=== PATIENT | male | born 1960 | race Two or more races ===

== ENCOUNTER 2020-03-08 12:13 | Emergency (ER) | payer OTHER, SELFPAY ==
--- NOTE | 2020-03-08 | XR_ITS ---
EXAMINATION: XR CHEST CLINICAL INFORMATION: Right rib pain. COMPARISON: 09/02/2015 TECHNIQUE: 2 views of the chest were obtained. FINDINGS: Slightly rotated positioning. Prominence of the cardiac and mediastinal silhouette. Linear opacity right lung base, probably reflecting atelectasis. No dense consolidation. No pleural effusion, pulmonary edema or pneumothorax. No acute rib fracture is seen. Thoracic spine degeneration. There is mild anterior vertebral body height loss of T11, T12, L1 vertebral bodies, of indeterminate age. IMPRESSION: 1. Linear atelectasis in the right lung base. No evidence of acute pulmonary process otherwise. 2. No acute rib fracture is seen. 3. Mild vertebral body height loss of T11, T12, L1, of indeterminate age.
[2020-03-08 12:24] VITALS: BP 153/73; PULSE 57; RESP 18; TEMP 37; O2SAT 99; BMI 29.9
--- NOTE | 2020-03-08 13:01 | ED_ITS ---
HPI - General Adult General Chief complaint: General Medical Stated complaint: RIB PAIN Time Seen by Provider: 03/08/20 12:56 Source: patient Mode of arrival: ambulatory Limitations: no limitations History of Present Illness HPI narrative: Right-sided rib pain X1 week. The patient tells me he was bending down to lift something up and felt a pop in his right ribs. He now has had continued pain since then. No shortness of breath, cough. Onset (ago): week(s) Location: chest Radiation: non-radiation Severity: mild Quality: sharp Pain Consistency: constant Relieving factors: immobilization Exacerbating factors: movement Associated symptoms: denies other symptoms Related Data Home Medications Medication Instructions Recorded Confirmed atorvastatin 40 mg PO DAILY 03/07/20 03/07/20 ibuprofen [Motrin] 600 mg PO TID PRN 03/07/20 03/07/20 lisinopril 20 mg PO DAILY 03/07/20 03/07/20 methadone 30 mg PO DAILY 03/07/20 03/07/20 multivitamin 1 cap PO DAILY 03/07/20 03/07/20 Previous Rx's Medication Instructions Recorded cyclobenzaprine 10 mg PO Q8H PRN #10 tab 03/08/20 lidocaine [Lidoderm] 1 patch TOPICAL DAILY #15 ea 03/08/20 naproxen 500 mg PO BID #20 tab 03/08/20 Allergies Allergy/AdvReac Type Severity Reaction Status Date / Time SEAFOOD Allergy Mild ANAPHYLAXIS Uncoded 03/08/20 12:23 Review of Systems Review of Systems: Yes all other systems are reviewed and are negative Constitutional: Constitutional: Reports no additional constitutional complaints, Denies body ache(s), Denies chills, Denies fever(s), Denies headache(s) and Denies weakness Eyes: Eyes: Reports no additional eye complaints and Denies change in vision ENT: Reports system reviewed and no additional complaints, except as documented, Denies dizziness, Denies headache(s), Denies nasal congestion, Denies nasal discharge and Denies neck pain Cardiovascular: Cardiovascular: Reports no additional cardiovascular complaints, Reports chest pain, Denies leg edema and Denies dyspnea Respiratory: Respiratory: Reports no additional respiratory complaints, Denies cough and Denies dyspnea Gastrointestinal: Gastrointestinal: Reports no additional gastrointestinal complaints, Denies abdominal pain, Denies diarrhea, Denies nausea and Denies vomiting Musculoskeletal: Musculoskeletal: Reports no additional musculoskeletal complaints, Denies abnormal gait, Denies back pain, Denies arthralgias, Denies joint swelling, Denies neck pain, Denies numbness and Denies tingling Integumentary/Breasts: Skin/Breast: Reports system reviewed and no additional complaints, except as docu and Denies rash Neurologic: Reports system reviewed and no additional complaints, except as documented, Denies Abnormal speech present, Denies abnormal gait, Denies dizziness, Denies headache(s), Denies focal weakness, Denies numbness, Denies tingling and Denies weakness [facility] Past Medical History Attestation statement: The following information was validated with the patient. Source: obtained from family and nursing notes reviewed Medical History Elevated cholesterol Hepatitis C HTN (hypertension) Hx of intravenous drug use in remission Social History Social History Advance Directives: No Advance Directives Information Provided: Yes Physical Exam Vital Signs and I&O and Narrative: Vital Signs and I&O: Vital Signs Temp 98.6 F 03/08/20 12:24 Pulse 57 03/08/20 12:24 Resp 18 03/08/20 12:24 BP 153/73 H 03/08/20 12:24 Pulse Ox 99 03/08/20 12:24 Intake & Output 03/07/20 03/08/20 03/08/20 18:59 06:59 18:59 Weight 89.358 kg Body Mass Index 29.9 Const: General: cooperative, healthy appearing, comfortable and no acute distress Orientation/consciousness: patient oriented x3 Limitations: no limitations HENMT: Head: Yes normal to inspection Ears: hearing grossly normal bilaterally General nose exam: Normal external nose present Face and sinus: Yes normal facial exam Mouth: Normal oral and palatal mucosa present Throat: Yes posterior oropharynx normal Eyes: General: appearance normal, both eyes and all related structures Pupils: Equal, round and reactive pupils present Neck: Neck: Yes normal visual inspection Chest: Chest palpation & inspection: normal inspection of the chest and localized rib tenderness with anteroposterior compression (Right lateral chest. No ecchymosis, crepitus) Resp: Effort & Inspection: normal respiratory effort Auscultation: clear to auscultation bilaterally Cardio: Rate: regular rate Rhythm: regular rhythm Peripheral pulses: Peripheral pulses 2+ throughout GI: Inspection: Yes normal to inspection Palpation (GI): Soft to palpation and nontender Auscultation: normal bowel sounds Back/Spine/Pelvis: Thoracic/Lumbar Spine: thoracic and lumbar spine normal to inspection Skin: General skin exam: no rashes or lesions noted Neuro: General: patient oriented x3, no focal motor deficits and normal sensation to monofilament Cranial nerves: Yes Equal, round and reactive pupils present Cognition (Neuro): normal cognition Speech: No Abnormal speech present Gait exam (Neuro): Normal gait present Motor exam (neuro): 5/5 motor strength present throughout Extrem: General: Yes normal to inspection Medical Decision Making MDM Narrative Medical decision making narrative: imaging negative. Likely contusion versus strain. Reviewed worrisome signs and symptoms and when to return to the emergency department. Comfortable discharge home. Imaging Data rib x-ray: Attestation: I personally reviewed and interpreted this imaging study as follows: My impression: Unremarkable Radiologist's impression: FINDINGS: Slightly rotated positioning. Prominence of the cardiac and mediastinal silhouette. Linear opacity right lung base, probably reflecting atelectasis. No dense consolidation. No pleural effusion, pulmonary edema or pneumothorax. No acute rib fracture is seen. Thoracic spine degeneration. There is mild anterior vertebral body height loss of T11, T12, L1 vertebral bodies, of indeterminate age. IMPRESSION: 1. Linear atelectasis in the right lung base. No evidence of acute pulmonary process otherwise. 2. No acute rib fracture is seen. 3. Mild vertebral body height loss of T11, T12, L1, of indeterminate age. Discharge Plan Discharge Clinical Impression: Chest wall muscle strain Qualifiers: Encounter type: initial encounter Qualified Code(s): S29.011A - Strain of muscle and tendon of front wall of thorax, initial encounter Patient Disposition: Home, Self-Care Instructions: Chest Wall Pain (ED) Additional Instructions: Heat or ice gentle stretching Prescriptions: New lidocaine [Lidoderm] 5 % adhesive patch,medicated 1 patch topical DAILY Qty: 15 RF: 0 cyclobenzaprine 10 mg tablet 10 mg PO Q8H PRN (Reason: muscle spasm) Qty: 10 RF: 0 naproxen 500 mg tablet 500 mg PO BID Qty: 20 RF: 0 No Action atorvastatin 40 mg Tablet 40 mg PO DAILY RF: 0 methadone 10 mg/5 mL Solution 30 mg PO DAILY RF: 0 lisinopril 20 mg Tablet 20 mg PO DAILY RF: 0 ibuprofen [Motrin] 600 mg Tablet 600 mg PO TID PRN (Reason: Pain) RF: 0 multivitamin Capsule 1 cap PO DAILY RF: 0 Referrals: Physician,Unknown [Primary Care Provider] - 2 days Stand Alone Forms: Work/School Release
== END 2020-03-08 13:45 | disposition home or self-care (01) ==
PROVIDERS: Emergency Provider Emergency Medicine
DX: S29.011A Strain of muscle and tendon of front wall of thorax, initial encounter (principal); R07.81 Pleurodynia; M54.6 Pain in thoracic spine; X58.XXXA Exposure to other specified factors, initial encounter; Y93.9 Activity, unspecified; Y92.9 Unspecified place or not applicable
CPT/HCPCS: 71046; 99283

== ENCOUNTER 2020-03-15 08:16 | Day surgery (SDC) | payer OTHER, SELFPAY ==
[2020-03-07 13:33] VITALS: BMI 28.7
--- NOTE | 2020-03-08 15:10 | HO.ANESPROP2 ---
Documented by User: Pamela Aly 03/08/20 15:14 HPI - Anesthesia Eval Consult details Narrative: 60yo M for colonoscopy [facility] Past Medical History Medical History Elevated cholesterol Hepatitis C HTN (hypertension) Hx of intravenous drug use in remission Social History Social History Smoking Status: Never smoker Packs Per Day: 0.5 Cigarettes Per Day: 10.0 Second Hand Smoke Exposure: No Use of substances other than those prescribed or required for medical reasons: No Substance Use Type: IV Drugs and Methamphetamine Have you been hit, kicked, punched, or otherwise hurt by someone within the past year? If so, by whom?: No Advance Directives: No Advance Directives Information Provided: No (unk) Recently lost weight without trying: No Meds Allergies Allergy/AdvReac Type Severity Reaction Status Date / Time SEAFOOD Allergy Mild ANAPHYLAXIS Uncoded 03/08/20 12:23 Home Medications Medication Instructions Recorded Confirmed Type atorvastatin 40 mg PO DAILY 03/07/20 03/07/20 History ibuprofen [Motrin] 600 mg PO TID PRN 03/07/20 03/07/20 History lisinopril 20 mg PO DAILY 03/07/20 03/07/20 History methadone 30 mg PO DAILY 03/07/20 03/07/20 History multivitamin 1 cap PO DAILY 03/07/20 03/07/20 History Exam Exam Date and Time: March 08, 2020 1510 Height,Weight and Vital Signs: Height 5 ft 8 in Weight 85.729 kg Pertinent Lab Results Pertinent Lab Results: Laboratory Tests 10/09/19 10/09/19 10/09/19 13:34 13:34 13:34 WBC 5.6 Hgb 12.7 L Hct 38.7 L Plt Count 203 Sodium 138 Potassium 4.3 Chloride 103 Bicarbonate 26 BUN 17 H Creatinine 1.18 Calcium 9.3 D Total Bilirubin 0.2 AST 36 ALT 46 H Alkaline Phosphatase 54 Total Protein 8.1 H Albumin 4.0 Hep C Viral Load 5502200, 6.86 H Assessment and Plan Assessment Anesthesia Assessment: Chart Reviewed Documented by User: Denise Pitt 03/15/20 08:41 PMFSH Past Medical History Medical History Elevated cholesterol Hepatitis C HTN (hypertension) Hx of intravenous drug use in remission Social History Social History Smoking Status: Never smoker Packs Per Day: 0.5 Cigarettes Per Day: 10.0 Second Hand Smoke Exposure: No Use of substances other than those prescribed or required for medical reasons: No Substance Use Type: IV Drugs and Methamphetamine Have you been hit, kicked, punched, or otherwise hurt by someone within the past year? If so, by whom?: No Advance Directives: No Advance Directives Information Provided: No (unk) Recently lost weight without trying: No Meds Allergies Allergy/AdvReac Type Severity Reaction Status Date / Time SEAFOOD Allergy Mild ANAPHYLAXIS Uncoded 03/08/20 12:23 Home Medications Medication Instructions Recorded Confirmed Type atorvastatin 40 mg PO DAILY 03/07/20 03/07/20 History ibuprofen [Motrin] 600 mg PO TID PRN 03/07/20 03/07/20 History lisinopril 20 mg PO DAILY 03/07/20 03/07/20 History methadone 30 mg PO DAILY 03/07/20 03/07/20 History multivitamin 1 cap PO DAILY 03/07/20 03/07/20 History Exam Airway Mallampati Class: III TM Dist: >3cm Neck ROM: Full Loose/Missing/Broken Teeth: Yes, Upper and Lower Heart: RRR Lungs: CTA Assessment and Plan Assessment Anesthesia Assessment: Anesthesia Plan Discussed Final Anesthetic Review NPO: Yes ASA Class: II Final Preanesthetic Review: Meds/Allgs Chart Reviewed, Consent Obtained/Reviewed and Anes Risks/Benef Reviewed Patient Risk: Low Procedure Risk: Low Anesthetic Plan Anesthetic Plan: MAC: Disposition: Standard PACU
[2020-03-15 08:19] VITALS: BP 179/87; PULSE 62; RESP 16; TEMP 36.4; O2SAT 97
[2020-03-15] MEDS: Lactated Ringers 1,000 ML 100 ML IVCONT (08:53)
--- NOTE | 2020-03-15 08:56 | MHC.SHP ---
Pre-Procedural Eval Section A The History & Physical has been completed within 30 days and I have reviewed it.: No Section B Chief Complaint: Screening Details of Present Illness: Colon cancer screening Relevant Family History (Specify if Yes): No Relevant Social History: Tobacco Use Present Medications: see Short Stay Collaborative assessment Medical History: Significant History (Chronc Hepatitis C, Hypertension) History of Previous Operations: No relevant previous surgery Allergies: Allergies Allergy/AdvReac Type Severity Reaction Status Date / Time SEAFOOD Allergy Mild ANAPHYLAXIS Uncoded 03/08/20 12:23 Review of Systems Sugical H&P ROS: Negative: Constitution, Cardiovascular, Respiratory and Gastrointestinal Exam Surgical H&P Exam: Normal: HEENT, Normal: Heart, Normal: Lungs, Normal: Extremities and Normal: Abdomen Plan Diagnosis/Plan: Unchanged Patient has been examined and remains a candidate for the planned procedure
--- NOTE | 2020-03-15 09:03 | PM.OP ---
Brief Operative Note Date of procedure: 03/15/20 Pre-op diagnosis: Colon cancer screening Post-op diagnosis: other (Colon polyp, diverticulosis and hemorrhoids) Procedure: COLONOSCOPY PROCEDURE NOTE Consent: Indications for the procedure and potential complications of bleeding, perforation, reaction to medications and missed diagnosis were discussed with the patient and informed consent was obtained. Instrument: Olympus PCF H 190 L variable stiffness pediatric colonoscope Monitoring: Vital signs and clinical assessment, intermittent blood pressure monitoring, continuous EKG monitoring, Pulse oximetry and Carbon Dioxide monitoring were done throughout the procedure. Colon withdrawl time was 24 minutes. Procedure: The patient was placed in the left lateral decubitis position and pre-procedure medications were administered. After a digital rectal examination of the ano-rectum, the video colonoscope was inserted into the rectum and advanced through the colon to the cecum. The colonoscope was slowly withdrawn in a retrograde panoramic fashion and the colon mucosa was carefully examined including a retroflexed view of the rectum. Findings and interventions are described below. Procedure Difficulty: Without difficulty Findings: Terminal Ileum: Not evaluated Cecum: Partially evaluated due to fair prep Ascending Colon: Partially evaluated due to fair prep Transverse Colon: A 5-6 mm adenomatous appearing polyp removed with a cold snare and polyp was not retrieved and partially evaluated due to fair prep Descending Colon: Partially evaluated due to fair prep Sigmoid Colon: Mild diverticulosis and partially evaluated due to fair prep Rectum: Normal Ano-rectum: Moderate internal hemorrhoids Colon preparation:Fair despite copious irrigation and poor in some areas of the colon (pt admitted taking rice and beans at 5 pm yesterday). Impression and Post Procedure Diagnosis: Colonoscopy Findings: One polyp removed - polyp was not retrieved. Mild diverticulosis seen in the sigmoid colon Moderate hemorrhoids on retroflexed exam. Plan: Await pathology results Patient has an appointment on 03/31/20 in the GI Clinic with Jayme Ramachandran M.D.-. Repeat Colonoscopy in 1 year due to fair prep - poor in some areas. Above findings were reviewed with the patient and colon polyps and diverticulosis handouts were given in the discharge area Surgeon: Jayme Ramachandran MD Anesthesia: MAC (Dr Pitt & Yancy Posada, BRIGIDA) Slubber Operator: Dafne Walls Pathology: none sent Condition: stable Disposition: PACU
[2020-03-15 09:55] VITALS: BP 136/88; PULSE 65; RESP 12; TEMP 36.1; O2SAT 94
[2020-03-15 10:10] VITALS: BP 151/98; PULSE 55; RESP 18; TEMP 36.1; O2SAT 96
--- NOTE | 2020-03-15 10:29 | HO.POSTANES ---
Post Anesthesia Evaluation Post Anesthesia Evaluation Vital Signs: Vital Signs Temp Pulse Resp BP Pulse Ox 03/15/20 10:10 97 F 55 18 151/98 H 96 03/15/20 09:55 97 F 65 12 136/88 94 03/15/20 08:19 97.6 F 62 16 179/87 H 97 Anesthesia: Monitored Mental Status: Awake Pain Control: Satisfactory Nausea/Vomiting: None Hydration: Adequate Anesthesia-Related Issues: No Anes. Related Issues
--- NOTE | 2020-04-10 15:02 | P.OP_ITS ---
Operative Note Operative Note Narrative: Date of procedure: 03/15/20 Pre-op diagnosis: Colon cancer screening Post-op diagnosis: other (Colon polyp, diverticulosis and hemorrhoids) Procedure: COLONOSCOPY TILL CECUM WITH SNARE POLYPECTOMY Consent: Indications for the procedure and potential complications of bleeding, perforation, reaction to medications and missed diagnosis were discussed with the patient and informed consent was obtained. Instrument: Olympus PCF H 190 L variable stiffness pediatric colonoscope Monitoring: Vital signs and clinical assessment, intermittent blood pressure monitoring, continuous EKG monitoring, Pulse oximetry and Carbon Dioxide monitoring were done throughout the procedure. Colon withdrawl time was 24 minutes. Procedure: The patient was placed in the left lateral decubitis position and pre-procedure medications were administered. After a digital rectal examination of the ano-rectum, the video colonoscope was inserted into the rectum and advanced through the colon to the cecum. The colonoscope was slowly withdrawn in a retrograde panoramic fashion and the colon mucosa was carefully examined including a retroflexed view of the rectum. Findings and interventions are described below. Procedure Difficulty: Without difficulty Findings: Terminal Ileum: Not evaluated Cecum: Partially evaluated due to fair prep Ascending Colon: Partially evaluated due to fair prep Transverse Colon: A 5-6 mm adenomatous appearing polyp removed with a cold snare and polyp was not retrieved and partially evaluated due to fair prep Descending Colon: Partially evaluated due to fair prep Sigmoid Colon: Mild diverticulosis and partially evaluated due to fair prep Rectum: Normal Ano-rectum: Moderate internal hemorrhoids Colon preparation:Fair despite copious irrigation and poor in some areas of the colon (pt admitted taking rice and beans at 5 pm yesterday). Impression and Post Procedure Diagnosis: Colonoscopy Findings: One polyp removed - polyp was not retrieved. Mild diverticulosis seen in the sigmoid colon Moderate hemorrhoids on retroflexed exam. Plan: Await pathology results Patient has an appointment on 03/31/20 in the GI Clinic with Jayme Ramachandran M.D.-. Repeat Colonoscopy in 1 year due to fair prep - poor in some areas. Above findings were reviewed with the patient and colon polyps and diverticulosis handouts were given in the discharge area Surgeon: Jayme Ramachandran MD Anesthesia: MAC (Dr Pitt & Yancy Posada, BRIGIDA) Self Sealing Fuel Tank Repairer: Dafne Walls Pathology: none sent Condition: stable Disposition: PACU
== END 2020-03-15 10:36 | disposition home or self-care (01) ==
PROVIDERS: PCP Internal Medicine; Visit Provider Internal Medicine Gastroenterology
PROC: 0DJD8ZZ Inspection of Lower Intestinal Tract, Via Natural or Artificial Opening Endoscopic (ICD-10-PCS; CPT 45378; principal; 2020-03-15 09:40)
DX: Z12.11 Encounter for screening for malignant neoplasm of colon (principal); K63.5 Polyp of colon; K57.30 Diverticulosis of large intestine without perforation or abscess without bleeding; K64.8 Other hemorrhoids; I10 Essential (primary) hypertension; B18.2 Chronic viral hepatitis C; Z79.899 Other long term (current) drug therapy; F11.20 Opioid dependence, uncomplicated; F17.210 Nicotine dependence, cigarettes, uncomplicated; Z88.8 Allergy status to other drugs, medicaments and biological substances
CPT/HCPCS: 45385

== ENCOUNTER → 2020-03-31 10:26 | Outpatient (BNVA) | payer OTHER, SELFPAY | PROVIDERS: PCP Internal Medicine; Referring Provider Internal Medicine; Visit Provider Internal Medicine Gastroenterology | DX: K59.09 Other constipation (principal); K57.30 Diverticulosis of large intestine without perforation or abscess without bleeding; B18.2 Chronic viral hepatitis C; Z98.890 Other specified postprocedural states | CPT/HCPCS: 99212 ==

== ENCOUNTER 2020-04-01 08:47 | Outpatient (REF) | payer OTHER, SELFPAY ==
[2020-04-01 09:19] LABS: MANUAL DIFF FLAG NO
[2020-04-01 09:39] LABS: Prothrombin Time 11.8 SEC (10.8-13.0)
[2020-04-01 09:42] LABS: Partial Thromboplastin Time 35.3 SEC (24.1-38.0)
[2020-04-01 09:44] LABS: Basophils Percent Auto 0.4 % (0-2); Eosinophils Absolute Auto 0.3 X10*3/uL (0.0-0.4); Eosinophils Percent Auto 5.8 % (0-4); Imm Gran Abs Auto 0.02 X10*3/uL (0.00-0.03); Imm Gran Pct Auto 0.4 % (0.0-0.4); Lymphocytes Absolute Auto 2.2 X10*3/uL (1.2-4.9); Lymphocytes Percent Auto 43.2 % (20-40); Mean Corpuscular HGB Conc 31.7 g/dl (31.0-36.0); Mean Corpuscular Hemoglobin 28.7 pg (27.0-33.0); Mean Corpuscular Volume 90.5 fL (80-98); Mean Platelet Volume 10.6 fL (9.4-12.4); Monocytes Absolute Auto 0.5 X10*3/uL (0.1-1.2); Monocytes Percent Auto 9.1 % (2-11); Neutrophils Absolute Auto 2.1 X10*3/uL (2.0-8.3); Neutrophils Percent Auto 41.1 % (45-73); Platelet Count 236 X10*3/uL (160-400); Red Blood Count 4.53 X10*6/uL (4.60-5.80); Red Cell Distribution Width 13.6 % (11.0-16.0); White Blood Count 5.2 X10*3/uL (4.8-10.8)
[2020-04-01 10:26] LABS: C Reactive Protein 0.51 mg/dL (< or = 0.50); Iron 155 mcg/dL (45-160); Percent Iron Saturation 47 % (15-50); Total Iron Binding Capacity 330 mcg/dL (228-428); Unsaturated Iron Binding 175 ug/dL
[2020-04-01 10:39] LABS: Ferritin 337 ng/mL (20-250)
[2020-04-01 10:49] LABS: HBS Num1 4.59 mIU/mL (0-7.99); HIV AB/AG Nonreactive (Nonreactive); HIV Num 1 0.04 S/CO (0.00-0.99); ~Hepatitis B Surface Antibody NONREACTIVE (Nonreactive)
[2020-04-01 10:55] LABS: HBsAGNum1 0.17 S/CO (0.00-0.99); Hepatitis B Surface Antigen Negative (Negative)
[2020-04-01 11:55] LABS: HBc Num1 7.05 S/CO (0.00-0.79)
[2020-04-01 12:03] LABS: HBc Num2 6.79 S/CO; HBc Num3 7.05 S/CO; Hepatitis B Core Antibody Reactive (Nonreactive)
[2020-04-02 14:16] LABS: Hepatitis B Core Antibody IgM NON-REACTIVE (NON-REACTIVE)
[2020-04-04 10:56] LABS: Anti Nuclear Antibody Screen NEGATIVE (NEGATIVE)
[2020-04-04 12:31] LABS: Alpha Fetoprotein 2.9 ng/mL (<6.1)
[2020-04-07 00:51] LABS: HCV Genotype PCR 1a
[2020-04-07 16:41] LABS: FIB-ALT 62 U/L (9-46); FIB-Alpha-2-Macroglobulin 418 mg/dL (106-279); FIB-Apolipoprotein A1 114 mg/dL (94-176); FIB-GGT 83 U/L (3-70); FIB-Haptoglobin 132 mg/dL (43-212); FIB-Total Bilirubin 0.4 mg/dL (0.2-1.2); Liver Fibrosis Score 0.76; Liver Fibrosis Stage F4; Nec Inflam Act Grade A2; Nec Inflam Act Score 0.54
== END 2020-04-01 08:48 | disposition home or self-care (01) ==
LOC: HO.LAB 08:47
PROVIDERS: PCP Internal Medicine; Visit Provider Internal Medicine Gastroenterology
DX: B18.2 Chronic viral hepatitis C (principal)
CPT/HCPCS: 36415; 81596; 82105; 82728; 83540; 85025; 85610; 85730; 86038; 86039; 86140; 86704; 86705; 86706; 87340; 87389

== ENCOUNTER 2020-04-22 13:53 | Outpatient (REF) | payer OTHER, SELFPAY ==
[2020-04-28 21:36] LABS: HCV Genotype PCR 1a
== END 2020-04-22 13:54 | disposition home or self-care (01) ==
LOC: HO.LAB 13:53
PROVIDERS: PCP Internal Medicine; Visit Provider Internal Medicine Gastroenterology
DX: Z13.89 Encounter for screening for other disorder (principal)

== ENCOUNTER → 2020-06-02 15:24 | Outpatient (BNVA) | payer OTHER, SELFPAY | PROVIDERS: Visit Provider Internal Medicine Gastroenterology | DX: Z76.89 Persons encountering health services in other specified circumstances (principal) ==

== ENCOUNTER 2020-06-23 08:35 | Outpatient (REF) | payer OTHER, SELFPAY ==
--- NOTE | 2020-06-23 08:38 | US_ITS ---
EXAMINATION: US COMPLETE ABDOMEN WITH LIVER ELASTOGRAPHY CLINICAL INFORMATION: Chronic viral hepatitis C. COMPARISON: None. TECHNIQUE: Real-time imaging of the abdominal viscera. Noninvasive ultrasound liver fibrosis assessment is performed using Natanael ElastPQ point quantification shear wave elastography (pSWE) with a 5 MHz transducer. Multiple elastography samples are obtained. FINDINGS: PANCREAS: The body of the pancreas is homogeneous in echotexture. The rest of the pancreas is not seen. ABDOMINAL AORTA: The proximal, middle, and distal aortic segments are normal in caliber. INFERIOR VENA CAVA: Visualized portions are normal. LIVER: The liver demonstrates normal size, contour and increased echogenicity. No focal lesion or intrahepatic biliary duct dilatation. The right lobe measures 13.4 cm in length. The left lobe measures 9.1 cm in length. There is hepatopedal flow seen in the middle portal vein on Doppler exam. Shear wave elastography provides a median stiffness of 1.71 m/s (reference: normal median stiffness is 0.81 - 1.22 m/s). The IQR/median stiffness to assess sampling precision is 0.27 (reference: optimal IQR/median stiffness is under 0.3). GALLBLADDER: Normal. The gallbladder is physiologically distended without evidence of stones, sludge, polyps, wall thickening or pericholecystic fluid. COMMON BILE DUCT: Normal in caliber measuring 0.4 cm in diameter. RIGHT KIDNEY: Normal. No hydronephrosis. No renal calculi or focal parenchymal lesions. The kidney measures 9.6 cm in maximum dimension. LEFT KIDNEY: There is a parapelvic cyst seen in the lower pole. It measures 1.5 x 2.0 x 1.2 cm. No hydronephrosis. No renal calculi or focal parenchymal lesions. The kidney measures 11.3 cm in maximum dimension. SPLEEN: Normal. The spleen measures 9.1 cm in maximum dimension. FREE FLUID: None. US/US abdomen comp w elastography IMPRESSION: 1. Mildly echogenic liver without focal lesion. Parapelvic cyst lower pole left kidney. No echogenic stones seen in either kidney. 2. Elastography: [id number] fibrosis, stage F2-F3.
== END 2020-06-23 08:36 | disposition home or self-care (01) ==
LOC: HO.US 08:35
PROVIDERS: PCP Internal Medicine; Visit Provider Internal Medicine Gastroenterology
DX: B18.2 Chronic viral hepatitis C (principal)
CPT/HCPCS: 76705; 76981

== ENCOUNTER 2020-06-24 12:34 | Outpatient (REF) | payer OTHER, SELFPAY | END 2020-06-24 12:35 | disposition home or self-care (01) | LOC: HO.LAB 12:34 | PROVIDERS: PCP Internal Medicine; Visit Provider Internal Medicine Gastroenterology | DX: B18.2 Chronic viral hepatitis C (principal) | CPT/HCPCS: 36415; 87522 ==

== ENCOUNTER → 2020-08-26 15:29 | Outpatient (BNVA) | payer OTHER, SELFPAY | PROVIDERS: PCP Internal Medicine; Visit Provider Internal Medicine Gastroenterology ==

== ENCOUNTER 2020-09-09 10:06 | Outpatient (REF) | payer OTHER, SELFPAY ==
[2020-09-09 10:59] LABS: MANUAL DIFF FLAG NO
[2020-09-09 11:06] LABS: Basophils Percent Auto 0.4 % (0-2); Eosinophils Absolute Auto 0.2 X10*3/uL (0.0-0.4); Eosinophils Percent Auto 3.3 % (0-4); Hematocrit 37.2 % (42-52); Hemoglobin 11.8 g/dl (14.0-18.0); Imm Gran Abs Auto 0.02 X10*3/uL (0.00-0.03); Imm Gran Pct Auto 0.3 % (0.0-0.4); Lymphocytes Absolute Auto 2.9 X10*3/uL (1.2-4.9); Lymphocytes Percent Auto 43.1 % (20-40); Mean Corpuscular HGB Conc 31.7 g/dl (31.0-36.0); Mean Corpuscular Hemoglobin 28.9 pg (27.0-33.0); Mean Corpuscular Volume 91.2 fL (80-98); Mean Platelet Volume 10.6 fL (9.4-12.4); Monocytes Absolute Auto 0.5 X10*3/uL (0.1-1.2); Monocytes Percent Auto 7.8 % (2-11); Neutrophils Percent Auto 45.1 % (45-73); Platelet Count 200 X10*3/uL (160-400); Red Blood Count 4.08 X10*6/uL (4.60-5.80); Red Cell Distribution Width 14.3 % (11.0-16.0); White Blood Count 6.7 X10*3/uL (4.8-10.8)
[2020-09-09 11:57] LABS: Alanine Aminotransferase 14 U/L (0-40); Albumin Level 3.7 g/dL (3.5-5.0); Alkaline Phosphatase 46 U/L (39-117); Anion Gap 11 (12-20); Aspartate Amino Transferase 15 U/L (5-37); Bilirubin Total 0.2 mg/dL (0.0-1.0); Blood Urea Nitrogen 18 mg/dL (9-16); Calcium 8.9 mg/dL (8.4-10.2); Carbon Dioxide 28 mmol/L (22-29); Chloride 105 mmol/L (96-108); Estimated Glomerular Filt Rate > 60; Glucose Random 114 mg/dL (60-115); Potassium 4.4 mmol/L (3.3-5.1); Sodium 140 mmol/L (135-145); Total Protein 7.9 g/dL (6.5-8.0)
[2020-09-10 18:36] LABS: HCV Log PCR <1.18 NOT DETECTED Log IU/mL (NOT DETECTED); HepC Viral Load <15 NOT DETECTED IU/mL (NOT DETECTED)
== END 2020-09-09 10:07 | disposition home or self-care (01) ==
LOC: HO.LAB 10:06
PROVIDERS: PCP Internal Medicine; Visit Provider Internal Medicine Gastroenterology
DX: B18.2 Chronic viral hepatitis C (principal)
CPT/HCPCS: 36415; 80053; 85025; 87522

== ENCOUNTER 2020-09-22 09:51 | Emergency (ER) | payer OTHER, SELFPAY ==
--- NOTE | ~2020-09-22 | XR_ITS ---
EXAMINATION: XR TIBIA AND FIBULA, LEFT CLINICAL INFORMATION: Pain lower leg. No known trauma COMPARISON: Radiographs left knee 01/20/2019 TECHNIQUE: AP and lateral views of the left tibia and fibula were obtained. FINDINGS: There is no acute or healing fracture, dislocation, destructive process. Bony mineralization is normal. There is no periostitis. No visible suprapatellar effusion. Hoffa's fat pad appears normal. XR/XR tibia fibula LT 2V IMPRESSION: Normal left tibia and fibula.
[2020-09-22 10:17] VITALS: BP 143/87; PULSE 66; RESP 18; TEMP 36.3; O2SAT 97; BMI 30.1
--- NOTE | 2020-09-22 10:25 | ED_ITS ---
HPI - General Adult General Chief complaint: Extremity Injury, Lower Stated complaint: leg pain Time Seen by Provider: 09/22/20 10:15 Source: patient Mode of arrival: ambulatory Limitations: no limitations History of Present Illness HPI narrative: 60-year-old male with a past medical history of high cholesterol, hepatitis-C on harvoni, hypertension, IV drug abuse currently on methadone here with complaints of left lower extremity pain. Patient tells me that he started to notice pain about 1 week ago. There was no injury or trauma. He does work 8-9 hours a day on his feet. He was wearing some old sneakers so he bought a pair of sketchers is about 6 days ago. Continued pain. Pain is worsened with walking. No erythema. There is mild swelling to the site. No fevers or chills. No calf pain. Patient tells me he received the Moderna vaccine on September 15. Related Data Home Medications Medication Instructions Recorded Confirmed atorvastatin 40 mg PO DAILY 03/07/20 08/26/20 lisinopril 20 mg tablet 20 mg PO DAILY 06/02/20 08/26/20 methadone 10 mg/5 mL oral solution 50 mg PO DAILY ml 06/02/20 08/26/20 Previous Rx's Medication Instructions Recorded sofosbuvir 400 mg-velpatasvir 100 1 tab PO DAILY 84 Days #84 tab 07/29/20 mg tablet cyclobenzaprine 10 mg PO TID PRN #10 tab 09/22/20 naproxen 500 mg PO BID PRN #20 tab 09/22/20 Allergies Allergy/AdvReac Type Severity Reaction Status Date / Time SEAFOOD Allergy Mild ANAPHYLAXIS Uncoded 03/08/20 12:23 Review of Systems Review of Systems: Yes all other systems are reviewed and are negative Constitutional: Constitutional: Reports no additional constitutional complaints, Denies body ache(s), Denies chills, Denies fever(s), Denies headache(s) and Denies weakness Eyes: Eyes: Reports no additional eye complaints and Denies change in vision ENT: Reports system reviewed and no additional complaints, except as documented, Denies dizziness, Denies headache(s), Denies nasal congestion, Denies nasal discharge and Denies neck pain Cardiovascular: Cardiovascular: Reports no additional cardiovascular complaints, Denies chest pain, Denies leg edema and Denies dyspnea Respiratory: Respiratory: Reports no additional respiratory complaints, Denies cough and Denies dyspnea Gastrointestinal: Gastrointestinal: Reports no additional gastrointestinal complaints, Denies abdominal pain, Denies diarrhea, Denies nausea and Denies vomiting Genitourinary: Genitourinary: Denies urinary incontinence Musculoskeletal: Musculoskeletal: Reports no additional musculoskeletal complaints, Denies back pain, Reports arthralgias, Reports joint swelling, De nies limited range of motion, Denies neck pain, Denies numbness and Denies tingling Integumentary/Breasts: Skin/Breast: Reports system reviewed and no additional complaints, except as docu and Denies rash Neurologic: Reports system reviewed and no additional complaints, except as documented, Denies Abnormal speech present, Denies dizziness, Denies headache(s), Denies numbness, Denies tingling and Denies weakness PMFSH Past Medical History Attestation statement: The following information was validated with the patient. Source: old records reviewed and nursing notes reviewed Medical History Chronic constipation Elevated cholesterol Hepatitis C Hepatitis C, chronic HTN (hypertension) Hx of intravenous drug use in remission Surgical History Hx of colonoscopy (~03/2020) Family History Family History Father No problems noted. Mother No problems noted. Social History Social History Alcohol intake: former Smoking Status: Current every day smoker Packs Per Day: 0.5 Cigarettes Per Day: 10.0 Second Hand Smoke Exposure: No Substance Use Type: IV Drugs and Methamphetamine Advance Directives: Yes Advance Directives Information Provided: Yes Advance Directives on File: No Physical Exam Vital Signs: Vital Signs: Last Vital Signs Temp 97.3 F 09/22/20 10:17 Pulse 66 09/22/20 10:17 Resp 18 09/22/20 10:17 BP 143/87 H 09/22/20 10:17 Pulse Ox 97 09/22/20 10:17 Body Mass Index 30.1 Const: General: cooperative, healthy appearing, comfortable and no acute dist ress Orientation/consciousness: patient oriented x3 Limitations: no limitations HENMT: Head: Yes normal to inspection Ears: hearing grossly normal bilaterally General nose exam: Normal external nose present Face and sinus: Yes normal facial exam Mouth: Normal oral and palatal mucosa present Throat: Yes posterior oropharynx normal Eyes: General: appearance normal, both eyes and all related structures Pupils: Equal, round and reactive pupils present Neck: Neck: Yes normal visual inspection Chest: Chest palpation & inspection: normal inspection of the chest Resp: Effort & Inspection: normal respiratory effort Auscultation: clear to auscultation bilaterally Cardio: Rate: regular rate Rhythm: regular rhythm Peripheral pulses: Peripheral pulses 2+ throughout GI: Inspection: Yes normal to inspection Palpation (GI): Soft to palpation and nontender Auscultation: normal bowel sounds Back/Spine/Pelvis: Thoracic/Lumbar Spine: thoracic and lumbar spine normal to inspection Skin: General skin exam: no rashes or lesions noted Neuro: General: patient oriented x3 Cranial nerves: Yes Equal, round and reactive pupils present Cognition (Neuro): normal cognition Speech: No Abnormal speech present Gait exam (Neuro): Normal gait present Extrem: General: Yes normal to inspection Upper/lower leg/hip images: 1. Pain along the anterior freed with no appreciable warmth or erythema or swelling. No ankle pain or knee pain. No calf pain or swelling Course Course Course Narrative: 60-year-old male here with left lower extremity pain which is atraumatic x1 week. Will check x-ray. 1125-x-rays show no bony abnormality. Exam is consistent with freed splints. Reviewed findings with the patient as well as care for home. Reviewed worrisome signs and symptoms and when to return to the emergency department. Comfortable discharge home. Medical Decision Making Medical Records Medical records reviewed: Yes I reviewed the patient's medical records. Lab Data Lab results reviewed: Yes I reviewed the patient's lab results. Imaging Data left tibia/fibula x-ray: Attestation: I personally reviewed and interpreted this imaging study as follows: Radiologist's impression: EXAMINATION: XR TIBIA AND FIBULA, LEFT CLINICAL INFORMATION: Pain lower leg. No known trauma COMPARISON: Radiographs left knee 01/20/2019 TECHNIQUE: AP and lateral views of the left tibia and fibula were obtained. FINDINGS: There is no acute or healing fracture, dislocation, destructive process. Bony mineralization is normal. There is no periostitis. No visible suprapatellar effusion. Hoffa's fat pad appears normal. XR/XR tibia fibula LT 2V IMPRESSION: Normal left tibia and fibula. Discharge Plan Discharge Clinical Impression: Freed splint of left lower extremity Qualifiers: Encounter type: initial encounter Qualified Code(s): S86.892A - Other injury of other muscle(s) and tendon(s) at lower leg level, left leg, initial encounter Patient Disposition: Home, Self-Care Instructions: Freed Splints (ED) Additional Instructions: Ice, elevation Wear supportive shoes as discussed Consider buying sports tape and taping from of the leg Prescriptions: New cyclobenzaprine 10 mg tablet 10 mg PO TID PRN (Reason: muscle spasm) Qty: 10 RF: 0 naproxen 500 mg tablet 500 mg PO BID PRN (Reason: pain) Qty: 20 RF: 0 No Action sofosbuvir-velpatasvir 400-100 mg tablet 1 tab PO DAILY 84 Days Qty: 84 RF: 0 atorvastatin 40 mg Tablet 40 mg PO DAILY RF: 0 methadone 10 mg/5 mL solution 50 mg PO DAILY RF: 0 lisinopril 20 mg tablet 20 mg PO DAILY RF: 0 Referrals: Isabel Galvan MD [Primary Care Provider] - 2 days Stand Alone Forms: Work/School Release Interventions: ED Discharge Assessment Last Done: 09/22/20 11:26 Discharge Date/Time: 09/22/20 11:28
== END 2020-09-22 11:28 | disposition home or self-care (01) ==
PROVIDERS: Emergency Provider Emergency Medicine; PCP Internal Medicine
DX: S86.892A Other injury of other muscle(s) and tendon(s) at lower leg level, left leg, initial encounter (principal); X50.1XXA Overexertion from prolonged static or awkward postures, initial encounter; M79.662 Pain in left lower leg; E78.5 Hyperlipidemia, unspecified; I10 Essential (primary) hypertension; F11.20 Opioid dependence, uncomplicated; B18.2 Chronic viral hepatitis C; F17.210 Nicotine dependence, cigarettes, uncomplicated; Z79.899 Other long term (current) drug therapy; Z79.02 Long term (current) use of antithrombotics/antiplatelets; Y93.9 Activity, unspecified; Y92.039 Unspecified place in apartment as the place of occurrence of the external cause; Y99.9 Unspecified external cause status
CPT/HCPCS: 73590; 99283

== ENCOUNTER 2020-10-07 12:26 | Outpatient (REF) | payer OTHER, SELFPAY ==
[2020-10-07 13:25] LABS: MANUAL DIFF FLAG NO
[2020-10-07 13:30] LABS: Basophils Percent Auto 0.3 % (0-2); Eosinophils Absolute Auto 0.2 X10*3/uL (0.0-0.4); Eosinophils Percent Auto 3.4 % (0-4); Hemoglobin 12.5 g/dl (14.0-18.0); Imm Gran Abs Auto 0.03 X10*3/uL (0.00-0.03); Imm Gran Pct Auto 0.4 % (0.0-0.4); Lymphocytes Percent Auto 44.3 % (20-40); Mean Corpuscular HGB Conc 32.1 g/dl (31.0-36.0); Mean Corpuscular Volume 90.5 fL (80-98); Mean Platelet Volume 10.2 fL (9.4-12.4); Monocytes Absolute Auto 0.5 X10*3/uL (0.1-1.2); Monocytes Percent Auto 6.7 % (2-11); Neutrophils Absolute Auto 3.1 X10*3/uL (2.0-8.3); Neutrophils Percent Auto 44.9 % (45-73); Platelet Count 231 X10*3/uL (160-400); Red Blood Count 4.31 X10*6/uL (4.60-5.80); Red Cell Distribution Width 14.2 % (11.0-16.0); White Blood Count 6.9 X10*3/uL (4.8-10.8)
[2020-10-07 13:58] LABS: Alanine Aminotransferase 16 U/L (0-40); Albumin Level 4.1 g/dL (3.5-5.0); Alkaline Phosphatase 49 U/L (39-117); Anion Gap 12 (12-20); Aspartate Amino Transferase 17 U/L (5-37); Bilirubin Total < 0.2 mg/dL (0.0-1.0); Blood Urea Nitrogen 17 mg/dL (9-16); Calcium 9.9 mg/dL (8.4-10.2); Carbon Dioxide 29 mmol/L (22-29); Chloride 99 mmol/L (96-108); Estimated Glomerular Filt Rate > 60; Glucose Random 120 mg/dL (60-115); Sodium 136 mmol/L (135-145); Total Protein 8.6 g/dL (6.5-8.0)
[2020-10-12 18:52] LABS: HCV Log PCR <1.18 NOT DETECTED Log IU/mL (NOT DETECTED); HepC Viral Load <15 NOT DETECTED IU/mL (NOT DETECTED)
== END 2020-10-07 12:27 | disposition home or self-care (01) ==
LOC: HO.LAB 12:26
PROVIDERS: Visit Provider Internal Medicine Gastroenterology
DX: B18.2 Chronic viral hepatitis C (principal)
CPT/HCPCS: 36415; 80053; 85025; 87522

== ENCOUNTER → 2020-10-11 14:20 | Outpatient (BNVA) | payer OTHER, SELFPAY | PROVIDERS: Visit Provider Internal Medicine Gastroenterology ==

== ENCOUNTER 2020-11-08 13:51 | Outpatient (REF) | payer OTHER, SELFPAY ==
[2020-11-08 14:36] LABS: MANUAL DIFF FLAG NO
[2020-11-08 14:42] LABS: Basophils Percent Auto 0.4 % (0-2); Eosinophils Absolute Auto 0.2 X10*3/uL (0.0-0.4); Eosinophils Percent Auto 2.3 % (0-4); Hematocrit 38.7 % (42-52); Hemoglobin 12.2 g/dl (14.0-18.0); Imm Gran Abs Auto 0.06 X10*3/uL (0.00-0.03); Imm Gran Pct Auto 0.8 % (0.0-0.4); Lymphocytes Absolute Auto 3.3 X10*3/uL (1.2-4.9); Lymphocytes Percent Auto 42.8 % (20-40); Mean Corpuscular HGB Conc 31.5 g/dl (31.0-36.0); Mean Corpuscular Hemoglobin 28.4 pg (27.0-33.0); Mean Platelet Volume 9.8 fL (9.4-12.4); Monocytes Absolute Auto 0.5 X10*3/uL (0.1-1.2); Monocytes Percent Auto 6.9 % (2-11); Neutrophils Absolute Auto 3.6 X10*3/uL (2.0-8.3); Neutrophils Percent Auto 46.8 % (45-73); Platelet Count 280 X10*3/uL (160-400); Red Cell Distribution Width 14.1 % (11.0-16.0); White Blood Count 7.7 X10*3/uL (4.8-10.8)
[2020-11-08 14:58] LABS: Alanine Aminotransferase 16 U/L (0-40); Albumin Level 4.2 g/dL (3.5-5.0); Alkaline Phosphatase 53 U/L (39-117); Anion Gap 12 (12-20); Aspartate Amino Transferase 17 U/L (5-37); Bilirubin Total 0.4 mg/dL (0.0-1.0); Blood Urea Nitrogen 27 mg/dL (9-16); Calcium 9.9 mg/dL (8.4-10.2); Carbon Dioxide 27 mmol/L (22-29); Chloride 101 mmol/L (96-108); Estimated Glomerular Filt Rate 44; Glucose Random 90 mg/dL (60-115); Potassium 4.3 mmol/L (3.3-5.1); Sodium 136 mmol/L (135-145); Total Protein 8.7 g/dL (6.5-8.0)
[2020-11-11 18:47] LABS: HCV Log PCR <1.18 NOT DETECTED Log IU/mL (NOT DETECTED); HepC Viral Load <15 NOT DETECTED IU/mL (NOT DETECTED)
== END 2020-11-08 13:52 | disposition home or self-care (01) ==
LOC: HO.LAB 13:51
PROVIDERS: PCP Internal Medicine; Visit Provider Internal Medicine Gastroenterology
DX: B18.2 Chronic viral hepatitis C (principal)
CPT/HCPCS: 36415; 80053; 85025; 87522

== ENCOUNTER → 2020-11-10 15:06 | Outpatient (BNVA) | payer OTHER, SELFPAY | PROVIDERS: PCP Internal Medicine; Visit Provider Internal Medicine Gastroenterology ==

== ENCOUNTER → 2021-02-02 14:22 | Outpatient (BNVA) | payer OTHER, SELFPAY | PROVIDERS: Visit Provider Internal Medicine Gastroenterology ==

== ENCOUNTER 2021-02-03 12:18 | Outpatient (REF) | payer OTHER, SELFPAY ==
[2021-02-03 13:15] LABS: MANUAL DIFF FLAG NO
[2021-02-03 13:24] LABS: Basophils Percent Auto 0.4 % (0-2); Eosinophils Absolute Auto 0.2 X10*3/uL (0.0-0.4); Eosinophils Percent Auto 2.7 % (0-4); Hematocrit 34.8 % (42-52); Hemoglobin 11.1 g/dl (14.0-18.0); Imm Gran Abs Auto 0.02 X10*3/uL (0.00-0.03); Imm Gran Pct Auto 0.3 % (0.0-0.4); Lymphocytes Absolute Auto 3.1 X10*3/uL (1.2-4.9); Lymphocytes Percent Auto 41.3 % (20-40); Mean Corpuscular HGB Conc 31.9 g/dl (31.0-36.0); Mean Corpuscular Hemoglobin 28.7 pg (27.0-33.0); Mean Corpuscular Volume 89.9 fL (80-98); Mean Platelet Volume 10.2 fL (9.4-12.4); Monocytes Absolute Auto 0.6 X10*3/uL (0.1-1.2); Monocytes Percent Auto 7.5 % (2-11); Neutrophils Absolute Auto 3.5 X10*3/uL (2.0-8.3); Neutrophils Percent Auto 47.8 % (45-73); Platelet Count 234 X10*3/uL (160-400); Red Blood Count 3.87 X10*6/uL (4.60-5.80); Red Cell Distribution Width 14.9 % (11.0-16.0); White Blood Count 7.4 X10*3/uL (4.8-10.8)
[2021-02-03 13:31] LABS: Prothrombin Time 11.5 SEC (9.9-13.0)
[2021-02-03 13:39] LABS: Alanine Aminotransferase 12 U/L (0-40); Alkaline Phosphatase 50 U/L (39-117); Anion Gap 12 (12-20); Aspartate Amino Transferase 16 U/L (5-37); Bilirubin Total 0.2 mg/dL (0.0-1.0); Blood Urea Nitrogen 21 mg/dL (9-16); Carbon Dioxide 28 mmol/L (22-29); Chloride 102 mmol/L (96-108); Estimated Glomerular Filt Rate > 60; Glucose Random 142 mg/dL (60-115); Potassium 4.5 mmol/L (3.3-5.1); Sodium 137 mmol/L (135-145); Total Protein 7.8 g/dL (6.5-8.0)
[2021-02-03 14:04] LABS: Ferritin 326 ng/mL (20-250)
[2021-02-03 14:12] LABS: Vitamin B12 312 pg/mL (200-900)
[2021-02-05 13:22] LABS: HCV Log PCR <1.18 NOT DETECTED Log IU/mL (NOT DETECTED); HepC Viral Load <15 NOT DETECTED IU/mL (NOT DETECTED)
== END 2021-02-03 12:19 | disposition home or self-care (01) ==
LOC: HO.LAB 12:18
PROVIDERS: PCP Internal Medicine; Visit Provider Internal Medicine Gastroenterology
DX: B18.2 Chronic viral hepatitis C (principal)
CPT/HCPCS: 36415; 80053; 82607; 82728; 85025; 85610; 87522

== ENCOUNTER 2021-03-23 08:45 | Outpatient (REF) | payer OTHER, SELFPAY ==
--- NOTE | ~2021-03-23 | US_ITS ---
EXAMINATION: US ABDOMEN LIMITED CLINICAL INFORMATION: Chronic viral hepatitis C. COMPARISON: Ultrasound abdomen complete with elastography 06/23/2020. Ultrasound abdomen 01/20/2020. TECHNIQUE: Real-time imaging of the right upper quadrant abdominal viscera. FINDINGS: PANCREAS: The body of the pancreas is homogeneous. The tail of the pancreas is not seen. LIVER: The liver is normal in size. The liver contour is normal. Parenchymal echogenicity is heterogeneous. No focal hepatic lesion. There is no intrahepatic biliary duct dilatation seen. GALLBLADDER: Normal. The gallbladder is physiologically distended without evidence of stones, sludge, polyps, wall thickening or pericholecystic fluid. COMMON BILE DUCT: Normal in caliber measuring 0.6 cm in diameter. RIGHT KIDNEY: No hydronephrosis. No renal calculi or focal parenchymal lesions. The kidney measures 11.3 cm in maximum dimension. FREE FLUID: None. US/US abdomen limited IMPRESSION: Slightly heterogeneous liver. No focal lesion seen. The rest of the ultrasound is unremarkable.
== END 2021-03-23 08:46 | disposition home or self-care (01) ==
LOC: HO.US 08:45
PROVIDERS: Visit Provider Internal Medicine Gastroenterology
DX: B18.2 Chronic viral hepatitis C (principal)
CPT/HCPCS: 76705

== ENCOUNTER 2021-04-07 09:44 | Day surgery (SDC) | payer OTHER, SELFPAY ==
[2021-03-31 15:31] VITALS: BMI 29.6
--- NOTE | 2021-04-06 10:29 | HO.ANESPROP2 ---
Documented by User: Pamela Aly NP 04/06/21 10:34 HPI - Anesthesia Eval Consult details Narrative: 61yo M for Colonoscopy s/p Colonsocopy 03/2020, repeat d/t poor prep Methadone daily PMFSH Active Problems Active Problems: All Active Problems (Updated 03/31/21 @ 15:33 by Padmaja Balderas RN) Colon cancer screening (Acute) Chronic constipation (Acute) Hepatitis C, chronic (Acute) Past Medical History Medical History Chronic constipation COVID-19 vaccine series completed Elevated cholesterol Hepatitis C, chronic HTN (hypertension) Hx of intravenous drug use in remission Family History Family History Father No problems noted. Mother No problems noted. Surgical History Surgical History Hx of colonoscopy (~03/2020) Social History Social History Household Members Other:: SISTER Are you a primary farm or ranch animal caretaker to a significant other at home: No Do you presently have visiting nurse or other home services: No Alcohol intake: former Patient Tobacco Use Status: Current everyday Tobacco user Tobacco use type: Cigarette Cigarette Packs Per Day: 0.5 Cigarettes Per Day: 5 Years Smoked: 47 Second Hand Smoke Exposure: No Substance Use Type: IV Drugs and Methamphetamine Have you been hit, kicked, punched, or otherwise hurt by someone within the past year? If so, by whom?: No Are you DNR?: No Advance Directives Information Provided: Yes (informational brochure mailed) Advance Directives on File: No Recently lost weight without trying: No Eating poorly because of decreased appetite: No Nutrition Risks: No Nutritional Risk Meds Allergies Allergy/AdvReac Type Severity Reaction Status Date / Time seafood Allergy Severe Anaphylaxis Verified 04/07/21 10:24 Home Medications Medication Instructions Recorded Confirmed Last Taken Type atorvastatin 40 mg tablet 40 mg PO DAILY 03/07/20 03/31/21 Unknown History lisinopril 20 mg tablet 20 mg PO DAILY 06/02/20 03/31/21 06/02/20 07:46 History methadone 10 mg/5 mL oral solution 60 mg PO DAILY ml 06/02/20 03/31/21 04/07/21 07:00 History Exam Exam Date and Time: April 06, 2021 1029 Height,Weight and Vital Signs: Height 5 ft 8 in Weight 88.451 kg Pertinent Lab Results Pertinent Lab Results: Laboratory Tests 02/03/21 02/03/21 12:36 12:36 WBC 7.4 Hgb 11.1 L Hct 34.8 L Plt Count 234 Sodium 137 Potassium 4.5 Chloride 102 Carbon Dioxide 28 BUN 21 H Creatinine 1.14 Assessment and Plan Assessment Anesthesia Assessment: Chart Reviewed Documented by User: Denise Pitt MD 04/07/21 11:00 [facility] Past Medical History Medical History Chronic constipation COVID-19 vaccine series completed Elevated cholesterol Hepatitis C, chronic HTN (hypertension) Hx of intravenous drug use in remission Family History Family History Father No problems noted. Mother No problems noted. Surgical History Surgical History Hx of colonoscopy (~03/2020) History of Problems with Anesthesia: No Social History Social History Household Members Other:: SISTER Are you a primary farm or ranch animal caretaker to a significant other at home: No Do you presently have visiting nurse or other home services: No Alcohol intake: former Patient Tobacco Use Status: Current everyday Tobacco user Tobacco use type: Cigarette Cigarette Packs Per Day: 0.5 Cigarettes Per Day: 5 Years Smoked: 47 Second Hand Smoke Exposure: No Substance Use Type: IV Drugs and Methamphetamine Have you been hit, kicked, punched, or otherwise hurt by someone within the past year? If so, by whom?: No Are you DNR?: No Advance Directives Information Provided: Yes (informational brochure mailed) Advance Directives on File: No Recently lost weight without trying: No Eating poorly because of decreased appetite: No Nutrition Risks: No Nutritional Risk Meds Allergies Allergy/AdvReac Type Severity Reaction Status Date / Time seafood Allergy Severe Anaphylaxis Verified 04/07/21 10:24 Home Medications Medication Instructions Recorded Confirmed Last Taken Type atorvastatin 40 mg tablet 40 mg PO DAILY 03/07/20 03/31/21 Unknown History lisinopril 20 mg tablet 20 mg PO DAILY 06/02/20 03/31/21 06/02/20 07:46 History methadone 10 mg/5 mL oral solution 60 mg PO DAILY ml 06/02/20 03/31/21 04/07/21 07:00 History Exam Airway Mallampati Class: II (Edentulous) TM Dist: >3cm Neck ROM: Full Loose/Missing/Broken Teeth: Yes, Upper and Lower Heart: RRR Lungs: CTA Assessment and Plan Assessment Anesthesia Assessment: Anesthesia Plan Discussed Final Anesthetic Review History of Problems with Anesthesia: No NPO: Yes ASA Class: II Final Preanesthetic Review: Meds/Allgs Chart Reviewed, Consent Obtained/Reviewed and Anes Risks/Benef Reviewed Patient Risk: Low Procedure Risk: Low Anesthetic Plan Anesthetic Plan: MAC: Disposition: Standard PACU
[2021-04-07 10:25] VITALS: BP 145/74; PULSE 61; RESP 20; TEMP 36.4; O2SAT 95
[2021-04-07] MEDS: Lactated Ringers 1,000 ML 100 ML IVCONT (10:36)
--- NOTE | 2021-04-07 10:41 | MHC.SHP ---
Pre-Procedural Eval Section A Date of Service: 04/07/21 Section B Chief Complaint: screening Details of Present Illness: screening Relevant Family History (Specify if Yes): No Relevant Social History: Tobacco Use (former smoker) Present Medications: see Short Stay Collaborative assessment Medical History: Significant History (Chronic constipation Elevated cholesterol Hepatitis C Hepatitis C, chronic HTN (hypertension) Hx of intravenous drug use in remission) History of Previous Operations: Relevant previous surgery/procedure and date(s) (hx of colonoscopy) Allergies: Allergies Allergy/AdvReac Type Severity Reaction Status Date / Time seafood Allergy Severe Anaphylaxis Verified 04/07/21 10:24 Review of Systems Sugical H&P ROS: Negative: Constitution, Cardiovascular, Respiratory and Gastrointestinal Exam Surgical H&P Exam: Normal: HEENT, Normal: Heart, Normal: Lungs and Normal: Abdomen Plan Diagnosis/Plan: Unchanged I have reviewed the history and physical and performed a pertinent physical examination on my patient. No changes have occurred unless specified.
--- NOTE | 2021-04-07 12:20 | PM.OP ---
Brief Operative Note Date of Service: 04/07/21 Pre-op diagnosis: Colon cancer screening, history of colon polyps Post-op diagnosis: other (Colon polyps, diverticulosis, hemorrhoids) Procedure: COLONOSCOPY TILL CECUM WITH BIOPSIES Consent: Indications for the procedure and potential complications of bleeding, perforation, reaction to medications and missed diagnosis were discussed with the patient and informed consent was obtained. Instrument: Olympus PCF H 190 L variable stiffness pediatric colonoscope Monitoring: Vital signs and clinical assessment, intermittent blood pressure monitoring, continuous EKG monitoring, Pulse oximetry and Carbon Dioxide monitoring were done throughout the procedure. Colon withdrawl time was 30 minutes. Procedure: The patient was placed in the left lateral decubitis position and pre-procedure medications were administered. After a digital rectal examination of the ano-rectum, the video colonoscope was inserted into the rectum and advanced through the colon to the cecum. The colonoscope was slowly withdrawn in a retrograde panoramic fashion and the colon mucosa was carefully examined including a retroflexed view of the rectum. Findings and interventions are described below. Procedure Difficulty: Without difficulty Findings: Terminal Ileum: Not evaluated Cecum: Partially evaluated due to fair prep. Ascending Colon: Partially evaluated due to fair prep. Transverse Colon: Normal Descending Colon: Normal Sigmoid Colon: Moderate diverticulosis Rectum: A few 3-4 mm diminutive appearing polyps - one removed with cold bx Ano-rectum: Moderate internal hemorrhoids Colon preparation: Good after copious irrigation and Fair to poor in the right colon Impression and Post Procedure Diagnosis: Colonoscopy Findings: One polyp removed Moderate diverticulosis seen in the sigmoid colon Moderate hemorrhoids on retroflexed exam. Plan: Await pathology results Patient has an appointment on 05/18/21 in the GI Clinic with Jayme Ramachandran M.D. Repeat Colonoscopy interval based on path results - in 5 years if polyps are adenomatous and due to fair prep. Above findings were reviewed with the patient and colon polyps handout was given in the discharge area Surgeon: Jayme Ramachandran MD Anesthesia: MAC (Arleen Tirado CRNA) Was an Communications Associate used for this Procedure?: Yes Communications Associate: Nelly Burroughs Estimated blood loss (mL): 0 Pathology: other (A. rectal polyp) Condition: stable Disposition: PACU
[2021-04-07 12:24] VITALS: BP 99/55; PULSE 63; RESP 16; TEMP 36.5; O2SAT 98
--- NOTE | 2021-04-07 12:24 | W.PM.OPN ---
Operative Note Operative Note Date of Service: 04/07/21 Narrative: Pre-op diagnosis:?Colon cancer screening, history of colon polyps Post-op diagnosis:?other (Colon polyps, diverticulosis, hemorrhoids) Procedure:? COLONOSCOPY TILL CECUM WITH BIOPSIES Consent: Indications for the procedure and potential complications of bleeding, perforation, reaction to medications and missed diagnosis were discussed with the patient and informed consent was obtained. Instrument: Olympus PCF H 190 L variable stiffness pediatric colonoscope Monitoring: Vital signs and clinical assessment, intermittent blood pressure monitoring, continuous EKG monitoring, Pulse oximetry and Carbon Dioxide monitoring were done throughout the procedure. Colon withdrawl time was 30 minutes. Procedure: The patient was placed in the left lateral decubitis position and pre-procedure medications were administered. After a digital rectal examination of the ano-rectum, the video colonoscope was inserted into the rectum and advanced through the colon to the cecum. The colonoscope was slowly withdrawn in a retrograde panoramic fashion and the colon mucosa was carefully examined including a retroflexed view of the rectum. Findings and interventions are described below. Procedure Difficulty: Without difficulty Findings: Terminal Ileum: Not evaluated Cecum:? Partially evaluated due to fair prep. Ascending Colon:? Partially evaluated due to fair prep. Transverse Colon:? Normal Descending Colon:? Normal Sigmoid Colon:? Moderate diverticulosis Rectum:? A few 3-4 mm diminutive appearing polyps - one removed with cold bx Ano-rectum:? Moderate internal hemorrhoids Colon preparation:? Good after copious irrigation and Fair to poor in the right colon Impression and Post Procedure Diagnosis: Colonoscopy Findings: One polyp removed Moderate diverticulosis seen in the sigmoid colon Moderate hemorrhoids on retroflexed exam. Plan: Await pathology results Patient has an appointment on 05/18/21 in the GI Clinic with Jayme Ramachandran M.D. Repeat Colonoscopy interval based on path results - in 3-5 years if polyps are adenomatous and due to fair prep. Above findings were reviewed with the patient and colon polyps handout was given in the discharge area Surgeon:?Jayme Ramachandran MD Anesthesia:?MAC (Arleen Tirado CRNA) Was an Research Chemical Engineer used for this Procedure?:?Yes Research Chemical Engineer:?Nelly Burroughs Estimated blood loss (mL):?0 Pathology:?other (A. rectal polyp) Condition:?stable Disposition:?PACU
[2021-04-07 12:39] VITALS: BP 117/70; PULSE 52; RESP 18; TEMP 36.2; O2SAT 98
== END 2021-04-07 13:06 | disposition home or self-care (01) ==
PROVIDERS: PCP Internal Medicine; Visit Provider Internal Medicine Gastroenterology
PROC: 0DJD8ZZ Inspection of Lower Intestinal Tract, Via Natural or Artificial Opening Endoscopic (ICD-10-PCS; CPT 45378; principal; 2021-04-07 11:20)
DX: Z12.11 Encounter for screening for malignant neoplasm of colon (principal); Z86.010 Personal history of colon polyps; K62.1 Rectal polyp; K57.30 Diverticulosis of large intestine without perforation or abscess without bleeding; K64.8 Other hemorrhoids; B19.20 Unspecified viral hepatitis C without hepatic coma; I10 Essential (primary) hypertension; K59.09 Other constipation; F19.21 Other psychoactive substance dependence, in remission; F11.20 Opioid dependence, uncomplicated; F17.210 Nicotine dependence, cigarettes, uncomplicated; Z79.899 Other long term (current) drug therapy
CPT/HCPCS: 45380; 88305

== ENCOUNTER → 2021-06-26 13:04 | Outpatient (BNVA) | payer OTHER, SELFPAY | PROVIDERS: PCP Internal Medicine; Referring Provider Internal Medicine; Visit Provider Internal Medicine Gastroenterology | DX: K59.09 Other constipation (principal); B18.2 Chronic viral hepatitis C | CPT/HCPCS: 99212 ==

== ENCOUNTER → 2022-02-01 11:59 | Outpatient (BNVA) | payer OTHER, SELFPAY | PROVIDERS: PCP Internal Medicine; Visit Provider Internal Medicine Gastroenterology | DX: B18.2 Chronic viral hepatitis C (principal); K59.09 Other constipation; Z86.010 Personal history of colon polyps | CPT/HCPCS: 99212 ==

== ENCOUNTER 2022-07-27 09:36 | Outpatient (REF) | payer OTHER, SELFPAY ==
[2022-07-27 10:00] LABS: MANUAL DIFF FLAG NO
[2022-07-27 10:12] LABS: Basophils Percent Auto 0.5 % (0-2); Eosinophils Absolute Auto 0.3 X10*3/uL (0.0-0.4); Eosinophils Percent Auto 4.8 % (0-4); Hematocrit 35.8 % (42.0-52.0); Hemoglobin 11.5 g/dl (14.0-18.0); Imm Gran Abs Auto 0.02 X10*3/uL (0.00-0.03); Imm Gran Pct Auto 0.3 % (0.0-0.4); Lymphocytes Absolute Auto 2.6 X10*3/uL (1.2-4.9); Mean Corpuscular HGB Conc 32.1 g/dl (31.0-36.0); Mean Corpuscular Hemoglobin 27.6 pg (27.0-33.0); Mean Corpuscular Volume 86.1 fL (80.0-98.0); Mean Platelet Volume 9.5 fL (9.4-12.4); Monocytes Absolute Auto 0.4 X10*3/uL (0.1-1.2); Neutrophils Absolute Auto 2.9 x10*3/uL (2.0-8.3); Neutrophils Percent Auto 46.4 % (45-73); Platelet Count 242 X10*3/uL (160-400); Red Blood Count 4.16 X10*6/uL (4.60-5.80); Red Cell Distribution Width 15.4 % (11.0-16.0); White Blood Count 6.3 X10*3/uL (4.8-10.8)
[2022-07-27 11:10] LABS: Alanine Aminotransferase 20 U/L (0-40); Albumin Level 4.1 g/dL (3.5-5.0); Alkaline Phosphatase 52 U/L (39-117); Anion Gap 10 (12-20); Aspartate Amino Transferase 15 U/L (5-37); Bilirubin Total 0.4 mg/dL (0.0-1.0); Blood Urea Nitrogen 18 mg/dL (9-16); Calcium 9.6 mg/dL (8.4-10.2); Carbon Dioxide 29 mmol/L (22-29); Chloride 104 mmol/L (96-108); Cholesterol 184 mg/dL; Estimated Glomerular Filt Rate > 60; Glucose Random 111 mg/dL (60-115); HDL Cholesterol 36 mg/dL; LDL Cholesterol Calculated 118 mg/dl; Potassium 4.4 mmol/L (3.3-5.1); Sodium 139 mmol/L (135-145); Total Protein 7.9 g/dL (6.5-8.0); Triglycerides 154 mg/dL
[2022-07-27 11:16] LABS: Prostate Specific Antigen Scr 0.13 ng/mL (<0.05-4.0); Thyroid Stimulating Hormone 0.82 uIU/mL (0.32-4.0)
[2022-07-30 07:58] LABS: HCV Log PCR <1.18 NOT DETECTED Log IU/mL (NOT DETECTED); HepC Viral Load <15 NOT DETECTED IU/mL (NOT DETECTED)
== END 2022-07-27 09:37 | disposition home or self-care (01) ==
LOC: HO.LAB 09:36
PROVIDERS: PCP Internal Medicine; Visit Provider Internal Medicine
DX: Z00.00 Encounter for general adult medical examination without abnormal findings (principal); E78.00 Pure hypercholesterolemia, unspecified; B18.2 Chronic viral hepatitis C; G57.11 Meralgia paresthetica, right lower limb; I10 Essential (primary) hypertension; Z72.0 Tobacco use
CPT/HCPCS: 36415; 80053; 80061; 84153; 84443; 85025; 87522

== ENCOUNTER → 2022-08-16 08:57 | Outpatient (BNVA) | payer OTHER, SELFPAY | PROVIDERS: PCP Internal Medicine; Visit Provider Internal Medicine Gastroenterology | DX: Z12.11 Encounter for screening for malignant neoplasm of colon (principal); K59.09 Other constipation; K74.60 Unspecified cirrhosis of liver; B18.2 Chronic viral hepatitis C | CPT/HCPCS: 99212 ==

== ENCOUNTER 2022-12-27 09:23 | Outpatient (AMB) | payer OTHER, SELFPAY ==
[2022-12-27 09:28] VITALS: BP 118/59; PULSE 72; BMI 31.2
--- NOTE | 2022-12-27 09:28 | A.OFFVIS_ITS ---
Intake Vital Signs 12/27/22 09:28 Height 5 ft 8 in Weight 205 lb BMI 31.2 BP 118/59 L Blood Pressure Location Lt brachial Position Sitting Pulse 72 Intake Visit Reasons: 4 month follow up Allergies seafood Allergy (Severe, Verified 12/27/22 09:27) Anaphylaxis Medication List - Last Reconciled 12/27/22 by Jayme Ramachandran MD atorvastatin 40 mg PO DAILY linaclotide (Linzess) 145 mcg PO QAM 30 days lisinopril 20 mg PO DAILY methadone 60 mg PO DAILY sennosides-docusate sodium 8.6-50 mg (Laxative Stool Softener With Senna) 2 tab- caps (2 x 8.6-50 mg) PO BEDTIME 60 days HPI 4 month follow up HPI Details GI CLINIC VISIT FOR THIS 62-YEAR-OLD MALE FOR FOLLOW-UP OF HEPATITIS C (Treated) AND COLON POLYPS. ?[facility] REVIEWED, BUN 17, CREATININE 1.18, NORMAL LFTS EXCEPT ELEVATED ALT OF 46, HEPATITIS C VIRAL LOAD OF [id number] iu/ML, HCV PCR LOG 6.86 ?IMAGING STUDIES: 06/23/20 US abdomen comp w elastography IMPRESSION: 1. Mildly echogenic liver without focal lesion. Parapelvic cyst lower pole left kidney. No echogenic stones seen in either kidney. 2. Elastography: Czei-jr-etpiithb fibrosis, stage F2-F3. ?ENDOSCOPIC STUDIES:? 04/07/21 COLONOSCOPY SHOWED: One hyperplastic polyp removed Moderate diverticulosis seen in the sigmoid colon Moderate hemorrhoids on retroflexed exam. Plan:? Repeat Colonoscopy interval based on path results - in 5 years if polyps are adenomatous and due to fair prep 03/15/20 ? Colonoscopy showed: ? Colon preparation:Fair despite copious irrigation and poor in some areas of the colon (pt admitted taking rice and beans at 5 pm yesterday). ? Impression and Post Procedure Diagnosis: ? One polyp removed - polyp was not retrieved. ? Mild diverticulosis seen in the sigmoid colon ? Moderate hemorrhoids on retroflexed exam. ? Plan:? Await pathology results ? Patient has an appointment on 03/31/20 in the GI Clinic with Jayme Ramachandran M.D.-. ? Repeat Colonoscopy in 1 year due to fair prep - poor in some areas. ? Above findings were reviewed with the patient and colon polyps and diverticulosis handouts? were given in the discharge area03/22 Colonoscopy showed diverticulosis and an adenomatous appearing polyp was removed and not retrieved.? Patient is at average risk for colon cancer denies family history of colon polyps or cancer. ?TODAY'S VISIT: Continues to have constipation Taking Senna 2 capsules every night and is not helping Has a BM every 2-3 days with passage of hard stools associated with straining. Order placed for Amitiza PAST VISIT: Takes a stool softener from [facility] every 2 to 3 days and advised to take it daily. Lost prescription for Linzess and never picked up the medication. Has a BM every 3 days and has to strain - advised to take a few dried apricots daily. Colonoscopy results reviewed with the patient. Complains of constipation - has a BM once a week with hard stools. Tried a red pill in the past which did not help. ?Finished Hep C treatment in November, and denies noticing any side effects. Continues to have constipation due to Methadone. Scheduled to have his 2nd dose of COVID vaccine tomorrow. ? Started taking Harvoni 2 month ago - on 08/08/20. ? Denies noticing any side effects and denies missing any doses. ? Diagnosed with Hepatitis C in October 2019. ? Admits to IVDA (heroin) many yrs ago - denies needle sharing. ? Takes methadone 30 mg daily and notes constipation. ? Denies past history of hepatitis or jaundice. ? Denies history of blood transfusions or tatoos. ? Denies known FH of liver disease or hepatitis C. ? Denies fatigue, fever or chills ? PATIENT DENIES SYMPTOMS OF HEARTBURN, DYSPHAGIA, NAUSEA, VOMITING, CHANGE IN APPETITE OR WEIGHT. DENIES RECENT CHANGE IN BOWEL HABITS, CONSTIPATION, DIARRHEA, BLACK STOOLS OR RECTAL BLEEDING. ? PATIENT DENIES MAJOR CARDIAC OR PULMONARY PROBLEMS, LOUD SNORING OR SLEEP APNEA ? DENIES Past surgeries. ? DENIES BEING ON CHRONIC ANTICOAGULATION, aspirin or NSAIDS. ? 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 Mother No problems noted. Social History Household Members Other:: SISTER Are you a primary sub acute care nurse to a significant other at home: No Do you presently have visiting nurse or other home services: No Alcohol intake: former Patient Tobacco Use Status: Current everyday Tobacco user Tobacco use type: Cigarette Cigarette Packs Per Day: 0.5 Cigarettes Per Day: 5 Years Smoked: 47 Second Hand Smoke Exposure: No Substance Use Type: IV Drugs and Methamphetamine Review of Systems Const All systems reviewed & are unremarkable except as noted in HPI and below Physical Exam Vital Signs: Last Vital Signs Pulse 72 12/27/22 09:28 BP 118/59 L 12/27/22 09:28 BMI result Body Mass Index 31.2 Const General: healthy appearing and no acute distress Nutritional Appearance: average body habitus Orientation/consciousness: patient oriented x3 Limitations: no limitations HEENT Head: Yes normal to inspection Ears: hearing grossly normal bilaterally Eyes Sclerae: sclerae normal Pupils: Equal, round and reactive pupils present Neck Neck: Yes normal visual inspection Chest Chest palpation & inspection: normal inspection of the chest Resp Effort & Inspection: normal respiratory effort Auscultation: clear to auscultation bilaterally Cardio Palpation: normal PMI Rate: regular rate Rhythm: regular rhythm Heart sounds: S1 normal heart sound present, S2 normal heart sound present and no murmurs GI Palpation (GI): Soft to palpation, nontender and No hepatosplenomegaly present Auscultation: normal bowel sounds Rectal Exam - Male: Yes deferred Skin General skin exam: no rashes or lesions noted Neuro General: patient oriented x3, gait normal and moves all extremities Cranial nerves: Yes Equal, round and reactive pupils present Psych Appearance: grossly normal Mental Status: mental status grossly normal Assessment & Plan Assessment & Plan (1) Cirrhosis: Code(s): K74.60 - Unspecified cirrhosis of liver (2) Colon cancer screening: Comment: 04/07/21 COLONOSCOPY SHOWED: One hyperplastic polyp removed Moderate diverticulosis seen in the sigmoid colon Moderate hemorrhoids on retroflexed exam. Plan: Repeat Colonoscopy interval based on path results - in 5 years if polyps are adenomatous and due to fair prep (due 04/2026) Patient is at average risk for colon cancer denies known family history of colon polyps or cancer. Code(s): Z12.11 - Encounter for screening for malignant neoplasm of colon (3) Chronic constipation: Comment: Patient has chronic constipation which he attributes to methadone use. Code(s): K59.09 - Other constipation (4) Hepatitis C, chronic: Comment: Patient likely acquired hepatitis C from IV drug abuse several years ago. Patient has minimal elevation of ALT. Liver Fibrosis score of 0.76 and fibrosis stage of F4. Jun 2020 Abd US with elastography showed [id number] fibrosis, stage F2- F3.. Started on Harvoni on 08/08/20 and finished treatment in 11/2020 - FU Hep C viral load was negative Code(s): B18.2 - Chronic viral hepatitis C Plan 62-year-old male followed in GI for management of chronic hepatitis and colon polyps. Patient likely acquired hepatitis C from IV drug abuse several years ago. Patient had minimal elevation of ALT in the past. His lab tests are not suggestive of cirrhosis. Hepatitis C genotype is 1a with high viral load. Liver Fibrosis score of 0.76 and fibrosis stage of F4. Jun 2020 abdominal ultrasound with elastography showed Ffmh-ws-rdssobgy fibrosis, stage F2-F3. Patient started taking Harvoni once a day on 08/08/20 for 12 weeks and finished his treatment of November. Patient has chronic constipation which he attributes to methadone use. Pt was prescribed Linzess 145 mcg daily for?constipation and has not picked up his medication Pt was advised to start taking Senna 2 capsules at bedtime daily for constipation 12/27/22 Lubiprostone 16 mcg twice daily ordered for constipation REDUCING THE RISK OF LIVER PROGRESSION:??patient was advised to?completely avoid use of alcohol and lose weight. HCC SURVEILLANCE:?? the patient is at risk of developing hepatocellular carcinoma given the presence of cirrhosis and need 6 monthly imaging surveillance with either abdominal ultrasound (US) or multiphase cross-sectional imaging (CT or MRI).? Last Abd US on 03/2021 had shown no focal liver lesions suspicious of HCC.? He will be scheduled for follow-up? liver ultrasound for ongoing surveillance.? (US scheduled in 08/2022 and pt unable to go due to an emergency at home) QUESTION OF LIVER TRANSPLANTATION: ??As patient has never had any hepatic decompensation, and continues to have good hepatic synthetic function with MELD score of 7,? liver transplantation does not need to be considered at this time. FU in 6 months Medications: New lubiprostone (Amitiza) 16 mcg (2 x 8 mcg) PO BID 30 days 120 caps 3RF K59.09 - Other constipation Coding Level of Care Code Est Pt Level 4 (53889) Diagnoses Cirrhosis K74.60 Colon cancer screening Z12.11 Chronic constipation K59.09 Hepatitis C, chronic B18.2 Time Spent (min) 18
== END 2022-12-27 09:49 | disposition home or self-care (01) ==
PROVIDERS: Visit Provider Internal Medicine Gastroenterology
DX: K74.60 Unspecified cirrhosis of liver (principal); Z12.11 Encounter for screening for malignant neoplasm of colon; K59.09 Other constipation; B18.2 Chronic viral hepatitis C
CPT/HCPCS: 99214

== ENCOUNTER → 2022-12-27 09:23 | Outpatient (BNVA) | payer OTHER, SELFPAY | PROVIDERS: Visit Provider Internal Medicine Gastroenterology | DX: Z12.11 Encounter for screening for malignant neoplasm of colon (principal); K74.60 Unspecified cirrhosis of liver; K59.09 Other constipation; B18.2 Chronic viral hepatitis C | CPT/HCPCS: 99212 ==

== ENCOUNTER 2023-04-12 07:02 | Outpatient (REF) | payer OTHER, SELFPAY ==
[2023-04-12 08:16] LABS: Alanine Aminotransferase 14 U/L (0-40); Albumin Level 4.1 g/dL (3.5-5.0); Alkaline Phosphatase 45 U/L (39-117); Anion Gap 10 (12-20); Aspartate Amino Transferase 16 U/L (5-37); Bilirubin Total 0.3 mg/dL (0.0-1.0); Blood Urea Nitrogen 19 mg/dL (9-16); Calcium 9.8 mg/dL (8.4-10.2); Carbon Dioxide 30 mmol/L (22-29); Chloride 102 mmol/L (96-108); Cholesterol 169 mg/dL (<200); Estimated Glomerular Filt Rate > 60; Glucose Random 119 mg/dL (60-115); HDL Cholesterol 34 mg/dL (>40); LDL Cholesterol Calculated 105 mg/dL (<100); Sodium 138 mmol/L (135-145); Total Protein 8.2 g/dL (6.5-8.0); Triglycerides 154 mg/dL (<150)
[2023-04-12 08:30] LABS: Prostate Specific Antigen Scr 0.47 ng/mL (<0.05-4.0)
== END 2023-04-12 07:03 | disposition home or self-care (01) ==
LOC: HO.LAB 07:02
PROVIDERS: PCP Internal Medicine; Visit Provider Internal Medicine
DX: Z00.00 Encounter for general adult medical examination without abnormal findings (principal); Z12.5 Encounter for screening for malignant neoplasm of prostate; E78.00 Pure hypercholesterolemia, unspecified; G57.11 Meralgia paresthetica, right lower limb; I10 Essential (primary) hypertension; Z72.0 Tobacco use
CPT/HCPCS: 36415; 80053; 80061; 84153

== ENCOUNTER 2023-07-04 10:23 | Outpatient (AMB) | payer OTHER, SELFPAY ==
--- NOTE | 2023-07-04 10:24 | MHC.OFFVIS ---
Intake Intake Visit Reasons: 6 month fu Cirrhosis Intake Note: Patient 6 month follow up for Cirrhosis. Patient cc: rectal bleeding because his hard stool due Constipation. Denies any other GI issues. 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 [facility] REVIEWED, BUN 17, CREATININE 1.18, NORMAL LFTS EXCEPT ELEVATED ALT OF 46, HEPATITIS C VIRAL LOAD OF [id number] iu/ML, HCV PCR LOG 6.86 ?IMAGING STUDIES: 06/23/20 US abdomen comp w elastography IMPRESSION: 1. Mildly echogenic liver without focal lesion. Parapelvic cyst lower pole left kidney. No echogenic stones seen in either kidney. 2. Elastography: Wgxq-la-ubkanpea fibrosis, stage F2-F3. ?ENDOSCOPIC STUDIES:? 04/07/21 COLONOSCOPY SHOWED: One hyperplastic polyp removed Moderate diverticulosis seen in the sigmoid colon Moderate hemorrhoids on retroflexed exam. Plan:? Repeat Colonoscopy interval based on path results - in 5 years if polyps are adenomatous and due to fair prep 03/15/20 ? Colonoscopy showed: ? Colon preparation:Fair despite copious irrigation and poor in some areas of the colon (pt admitted taking rice and beans at 5 pm yesterday). ? Impression and Post Procedure Diagnosis: ? One polyp removed - polyp was not retrieved. ? Mild diverticulosis seen in the sigmoid colon ? Moderate hemorrhoids on retroflexed exam. ? Plan:? Await pathology results ? Patient has an appointment on 03/31/20 in the GI Clinic with Jayme Ramachandran M.D.-. ? Repeat Colonoscopy in 1 year due to fair prep - poor in some areas. ? Above findings were reviewed with the patient and colon polyps and diverticulosis handouts? were given in the discharge area03/22 Colonoscopy showed diverticulosis and an adenomatous appearing polyp was removed and not retrieved.? Patient is at average risk for colon cancer denies family history of colon polyps or cancer. ?TODAY'S VISIT: Patient cc: rectal bleeding because his hard stool due Constipation. Denies any other GI issues. Continues to have constipation Taking Senna 2 capsules every night and is not helping Has a BM every 2-3 days with passage of hard stools associated with straining. Medication is not working No BM for 2-3 days. Takes Senna 2 pills every day Pt was prescribed Amitiza in the past - requested GI RN to send PA for Amitiza PAST VISIT: Takes a stool softener from [facility] every 2 to 3 days and advised to take it daily. Lost prescription for Linzess and never picked up the medication. Has a BM every 3 days and has to strain - advised to take a few dried apricots daily. Colonoscopy results reviewed with the patient. Complains of constipation - has a BM once a week with hard stools. Tried a red pill in the past which did not help. ?Finished Hep C treatment in November, and denies noticing any side effects. Continues to have constipation due to Methadone. Scheduled to have his 2nd dose of COVID vaccine tomorrow. ? Started taking Harvoni 2 month ago - on 08/08/20. ? Denies noticing any side effects and denies missing any doses. ? Diagnosed with Hepatitis C in October 2019. ? Admits to IVDA (heroin) many yrs ago - denies needle sharing. ? Takes methadone 30 mg daily and notes constipation. ? Denies past history of hepatitis or jaundice. ? Denies history of blood transfusions or tatoos. ? Denies known FH of liver disease or hepatitis C. ? Denies fatigue, fever or chills ? PATIENT DENIES SYMPTOMS OF HEARTBURN, DYSPHAGIA, NAUSEA, VOMITING, CHANGE IN APPETITE OR WEIGHT. DENIES RECENT CHANGE IN BOWEL HABITS, CONSTIPATION, DIARRHEA, BLACK STOOLS OR RECTAL BLEEDING. ? PATIENT DENIES MAJOR CARDIAC OR PULMONARY PROBLEMS, LOUD SNORING OR SLEEP APNEA ? DENIES Past surgeries. ? DENIES BEING ON CHRONIC ANTICOAGULATION, aspirin or NSAIDS. ? 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 Mother No problems noted. Social History Household Members Other:: SISTER Are you a primary point of care technician to a significant other at home: No Do you presently have visiting nurse or other home services: No Alcohol intake: former Patient Tobacco Use Status: Current everyday Tobacco user Tobacco use type: Cigarette Cigarette Packs Per Day: 0.5 Cigarettes Per Day: 5 Years Smoked: 47 Second Hand Smoke Exposure: No Substance Use Type: IV Drugs and Methamphetamine Assessment & Plan Assessment & Plan (1) Cirrhosis: Code(s): K74.60 - Unspecified cirrhosis of liver (2) Colon cancer screening: Comment: 04/07/21 COLONOSCOPY SHOWED: One hyperplastic polyp removed Moderate diverticulosis seen in the sigmoid colon Moderate hemorrhoids on retroflexed exam. Plan: Repeat Colonoscopy interval based on path results - in 5 years if polyps are adenomatous and due to fair prep (due 04/2026) Patient is at average risk for colon cancer denies known family history of colon polyps or cancer. Code(s): Z12.11 - Encounter for screening for malignant neoplasm of colon (3) Chronic constipation: Comment: Patient has chronic constipation which he attributes to methadone use. Code(s): K59.09 - Other constipation (4) Hepatitis C, chronic: Comment: Patient likely acquired hepatitis C from IV drug abuse several years ago. Patient has minimal elevation of ALT. Liver Fibrosis score of 0.76 and fibrosis stage of F4. Jun 2020 Abd US with elastography showed [id number]-knwqrjkz fibrosis, stage F2-F3.. Started on Harvoni on 08/08/20 and finished treatment in 11/2020 - FU Hep C viral load was negative Code(s): B18.2 - Chronic viral hepatitis C Plan 63 year-old male followed in GI for management of chronic hepatitis and colon polyps. Patient likely acquired hepatitis C from IV drug abuse several years ago. Patient had minimal elevation of ALT in the past. His lab tests are not suggestive of cirrhosis. Hepatitis C genotype is 1a with high viral load. Liver Fibrosis score of 0.76 and fibrosis stage of F4. Jun 2020 abdominal ultrasound with elastography showed Lmjc-lw-ogwrkhii fibrosis, stage F2-F3. Patient started taking Harvoni once a day on 08/08/20 for 12 weeks and finished his treatment of November. Patient has chronic constipation which he attributes to methadone use. Pt was prescribed Linzess 145 mcg daily for?constipation and has not picked up his medication Pt was advised to start taking Senna 2 capsules at bedtime daily for constipation 12/27/22 Lubiprostone 16 mcg twice daily ordered for constipation REDUCING THE RISK OF LIVER PROGRESSION:??patient was advised to?completely avoid use of alcohol and lose weight. HCC SURVEILLANCE:?? the patient is at risk of developing hepatocellular carcinoma given the presence of cirrhosis and need 6 monthly imaging surveillance with either abdominal ultrasound (US) or multiphase cross-sectional imaging (CT or MRI).? Last Abd US on 03/2021 had shown no focal liver lesions suspicious of HCC.? He will be scheduled for follow-up? liver ultrasound for ongoing surveillance.? (US scheduled in 08/2022 and pt unable to go due to an emergency at home) QUESTION OF LIVER TRANSPLANTATION: ??As patient has never had any hepatic decompensation, and continues to have good hepatic synthetic function with MELD score of 7,? liver transplantation does not need to be considered at this time. 07/04/23 ectal bleeding because his hard stool due Constipation. Denies any other GI issues. Continues to have constipation Taking Senna 2 capsules every night and is not helping Has a BM every 2-3 days with passage of hard stools associated with straining. PA submitted for [place] by GI RN FU in 3 months Telehealth Telehealth Location of provider rendering services: practice address Location of patient: address on file Patient Identification confirmed using: Name, : Yes Telehealth method: voice only Patient verbally consented to treatment: Yes Patient verbally consented to billing insurance company: Yes Patient informed of any privacy concerns related to visit: Yes Minutes spent on Phone/Video with Pt.: 12 Coding Level of Care Code Tele Est Pt Level 3 (61617) Diagnoses Cirrhosis K74.60 Colon cancer screening Z12.11 Chronic constipation K59.09 Hepatitis C, chronic B18.2
== END 2023-07-04 16:10 | disposition home or self-care (01) ==
LOC: HO.HGI 10:23
PROVIDERS: PCP Internal Medicine; Visit Provider Internal Medicine Gastroenterology
DX: K74.60 Unspecified cirrhosis of liver (principal); Z12.11 Encounter for screening for malignant neoplasm of colon; K59.09 Other constipation; B18.2 Chronic viral hepatitis C
CPT/HCPCS: 99213

== ENCOUNTER → 2023-07-04 10:23 | Outpatient (BNVA) | payer OTHER, SELFPAY | PROVIDERS: PCP Internal Medicine; Visit Provider Internal Medicine Gastroenterology ==

== ENCOUNTER 2023-07-05 10:36 | Outpatient (REF) | payer OTHER, SELFPAY ==
[2023-07-05 11:29] LABS: Anion Gap 11 (12-20); Blood Urea Nitrogen 21 mg/dL (9-16); Calcium 9.6 mg/dL (8.4-10.2); Carbon Dioxide 28 mmol/L (22-29); Chloride 102 mmol/L (96-108); Estimated Glomerular Filt Rate > 60; Glucose Fasting 155 mg/dL (60-99); Potassium 4.3 mmol/L (3.3-5.1); Sodium 137 mmol/L (135-145)
[2023-07-09 14:48] LABS: IgA 119 mg/dL (70-320); IgG 2233 mg/dL (600-1540); IgM 182 mg/dL (50-300)
[2023-07-10 04:58] LABS: Lyme Abs Screen <0.90 index
== END 2023-07-05 10:37 | disposition home or self-care (01) ==
LOC: HO.LAB 10:36
PROVIDERS: PCP Internal Medicine; Visit Provider Psychiatry & Neurology Neurology
DX: G62.9 Polyneuropathy, unspecified (principal)
CPT/HCPCS: 36415; 80048; 82784; 86334; 86617; 86618

== ENCOUNTER 2023-12-27 06:39 | Outpatient (REF) | payer OTHER, SELFPAY ==
[2023-12-27 07:45] LABS: Estimated Average Glucose 197 mg/dL; Hemoglobin A1c % 8.5 % (<6.0)
[2023-12-27 08:10] LABS: Alanine Aminotransferase 18 U/L (0-40); Albumin Level 3.9 g/dL (3.5-5.0); Alkaline Phosphatase 50 U/L (39-117); Anion Gap 13 (12-20); Aspartate Amino Transferase 13 U/L (5-37); Bilirubin Total 0.3 mg/dL (0.0-1.0); Blood Urea Nitrogen 21 mg/dL (9-16); Calcium 9.8 mg/dL (8.4-10.2); Carbon Dioxide 28 mmol/L (22-29); Chloride 101 mmol/L (96-108); Estimated Glomerular Filt Rate 56; Glucose Random 204 mg/dL (60-115); Potassium 4.2 mmol/L (3.3-5.1); Sodium 138 mmol/L (135-145); Total Protein 7.8 g/dL (6.5-8.0)
== END 2023-12-27 06:40 | disposition home or self-care (01) ==
LOC: HO.LAB 06:39
PROVIDERS: Visit Provider Internal Medicine
DX: E78.00 Pure hypercholesterolemia, unspecified (principal); G57.11 Meralgia paresthetica, right lower limb; I10 Essential (primary) hypertension; R73.01 Impaired fasting glucose
CPT/HCPCS: 36415; 80053; 83036

== ENCOUNTER 2024-03-31 06:08 | Outpatient (REF) | payer MEDICARE, SELFPAY ==
[2024-03-31 06:32] LABS: MANUAL DIFF FLAG NO
[2024-03-31 07:39] LABS: Basophils Percent Auto 0.4 % (0-2); Eosinophils Absolute Auto 0.4 X10*3/uL (0.0-0.4); Eosinophils Percent Auto 4.4 % (0-4); Hematocrit 39.3 % (42.0-52.0); Hemoglobin 12.2 g/dl (14.0-18.0); Imm Gran Abs Auto 0.03 X10*3/uL (0.00-0.03); Imm Gran Pct Auto 0.3 % (0.0-0.4); Lymphocytes Absolute Auto 4.6 X10*3/uL (1.2-4.9); Mean Corpuscular Hemoglobin 27.7 pg (27.0-33.0); Mean Corpuscular Volume 89.3 fL (80.0-98.0); Mean Platelet Volume 10.2 fL (9.4-12.4); Monocytes Absolute Auto 0.6 X10*3/uL (0.1-1.2); Monocytes Percent Auto 6.8 % (2-11); Neutrophils Absolute Auto 3.6 x10*3/uL (2.0-8.3); Neutrophils Percent Auto 39.1 % (45-73); Platelet Count 277 X10*3/uL (160-400); Red Cell Distribution Width 15.8 % (11.0-16.0); White Blood Count 9.3 X10*3/uL (4.8-10.8)
[2024-03-31 08:08] LABS: Estimated Average Glucose 146 mg/dL; Hemoglobin A1C 160.7232 umol/L; Hemoglobin A1c % 6.7 % (<6.0); Total Hemoglobin (HGBA1C) 3251.8199 umol/L
[2024-03-31 08:13] LABS: Alanine Aminotransferase 24 U/L (0-40); Albumin Level 4.6 g/dL (3.5-5.0); Alkaline Phosphatase 61 U/L (39-117); Anion Gap 16 (12-20); Aspartate Amino Transferase 22 U/L (5-37); Bilirubin Total 0.3 mg/dL (0.0-1.0); Blood Urea Nitrogen 26 mg/dL (9-16); Calcium 10.4 mg/dL (8.4-10.2); Carbon Dioxide 26 mmol/L (22-29); Chloride 102 mmol/L (96-108); Cholesterol 179 mg/dL (<200); Estimated Glomerular Filt Rate 51; Glucose Random 92 mg/dL (60-115); HDL Cholesterol 36 mg/dL (>40); LDL Cholesterol Calculated 100 mg/dL (<100); Potassium 3.9 mmol/L (3.3-5.1); Sodium 140 mmol/L (135-145); Total Protein 9.4 g/dL (6.5-8.0); Triglycerides 215 mg/dL (<150)
[2024-03-31 08:19] LABS: Creatinine Urine 134.45 mg/dL; Microalbumin Urine < 5.0 mg/L
== END 2024-03-31 06:09 | disposition home or self-care (01) ==
LOC: HO.LAB 06:08
PROVIDERS: PCP Internal Medicine; Visit Provider Internal Medicine
DX: E11.65 Type 2 diabetes mellitus with hyperglycemia (principal); E78.00 Pure hypercholesterolemia, unspecified; I10 Essential (primary) hypertension; K21.9 Gastro-esophageal reflux disease without esophagitis; M54.9 Dorsalgia, unspecified
CPT/HCPCS: 36415; 80053; 80061; 82043; 82570; 83036; 85025

== ENCOUNTER 2024-07-06 07:07 | Outpatient (REF) | payer MEDICARE, SELFPAY ==
[2024-07-06 07:31] LABS: MANUAL DIFF FLAG NO
[2024-07-06 08:09] LABS: Basophils Absolute Auto 0.1 X10*3/uL (0.0-0.2); Basophils Percent Auto 0.7 % (0-2); Eosinophils Absolute Auto 0.4 X10*3/uL (0.0-0.4); Eosinophils Percent Auto 4.6 % (0-4); Hematocrit 35.6 % (42.0-52.0); Hemoglobin 11.4 g/dl (14.0-18.0); Imm Gran Abs Auto 0.03 X10*3/uL (0.00-0.03); Imm Gran Pct Auto 0.4 % (0.0-0.4); Lymphocytes Absolute Auto 3.6 X10*3/uL (1.2-4.9); Lymphocytes Percent Auto 43.3 % (20-40); Mean Corpuscular Hemoglobin 28.2 pg (27.0-33.0); Mean Corpuscular Volume 88.1 fL (80.0-98.0); Mean Platelet Volume 10.1 fL (9.4-12.4); Monocytes Absolute Auto 0.6 X10*3/uL (0.1-1.2); Monocytes Percent Auto 7.4 % (2-11); Neutrophils Absolute Auto 3.6 x10*3/uL (2.0-8.3); Neutrophils Percent Auto 43.6 % (45-73); Platelet Count 242 X10*3/uL (160-400); Red Blood Count 4.04 X10*6/uL (4.60-5.80); Red Cell Distribution Width 14.7 % (11.0-16.0); White Blood Count 8.2 X10*3/uL (4.8-10.8)
[2024-07-06 08:55] LABS: Alanine Aminotransferase 14 U/L (0-40); Albumin Level 4.1 g/dL (3.5-5.0); Alkaline Phosphatase 47 U/L (39-117); Anion Gap 14 (12-20); Aspartate Amino Transferase 19 U/L (5-37); Bilirubin Total 0.3 mg/dL (0.0-1.0); Blood Urea Nitrogen 22 mg/dL (9-16); Calcium 9.6 mg/dL (8.4-10.2); Carbon Dioxide 23 mmol/L (22-29); Chloride 104 mmol/L (96-108); Cholesterol 156 mg/dL (<200); Estimated Glomerular Filt Rate > 60; Glucose Random 109 mg/dL (60-115); HDL Cholesterol 33 mg/dL (>40); LDL Cholesterol Calculated 91 mg/dL (<100); Phosphorus 2.8 mg/dL (2.7-4.5); Potassium 4.3 mmol/L (3.3-5.1); Sodium 137 mmol/L (135-145); Total Protein 8.6 g/dL (6.5-8.0); Triglycerides 162 mg/dL (<150)
[2024-07-06 08:59] LABS: Estimated Average Glucose 131 mg/dL; Hemoglobin A1C 136.7733 umol/L; Hemoglobin A1c % 6.2 % (<6.0); Total Hemoglobin (HGBA1C) 3075.4876 umol/L
[2024-07-06 09:21] LABS: Ferritin 392 ng/mL (20-250)
[2024-07-06 09:23] LABS: Prostate Specific Antigen Scr 0.11 ng/mL (<0.05-4.0)
[2024-07-06 11:03] LABS: Parathyroid Hormone Intact 93.1 pg/mL (8.7-77.1)
[2024-07-06 13:03] LABS: Vitamin B12 452 pg/mL (200-900)
== END 2024-07-06 07:08 | disposition home or self-care (01) ==
LOC: HO.LAB 07:07
PROVIDERS: PCP Internal Medicine; Visit Provider Internal Medicine
DX: E11.9 Type 2 diabetes mellitus without complications (principal); E78.2 Mixed hyperlipidemia; E83.52 Hypercalcemia; I10 Essential (primary) hypertension; Z72.0 Tobacco use; Z12.5 Encounter for screening for malignant neoplasm of prostate
CPT/HCPCS: 36415; 80053; 80061; 82607; 82728; 83036; 83970; 84100; 84153; 85025

== ENCOUNTER 2024-10-31 07:35 | Outpatient (REF) | payer MEDICARE, MEDICAID, SELFPAY ==
[2024-10-31 09:04] LABS: PTH Intact Intraoperative 156.7 pg/mL (8.7-77.1)
[2024-10-31 09:12] LABS: Alanine Aminotransferase 17 U/L (0-40); Albumin Level 4.2 g/dL (3.5-5.0); Alkaline Phosphatase 52 U/L (39-117); Anion Gap 11 (12-20); Aspartate Amino Transferase 19 U/L (5-37); Bilirubin Total 0.2 mg/dL (0.0-1.0); Blood Urea Nitrogen 21 mg/dL (9-16); Calcium 9.6 mg/dL (8.4-10.2); Carbon Dioxide 26 mmol/L (22-29); Chloride 105 mmol/L (96-108); Estimated Glomerular Filt Rate > 60; Glucose Random 104 mg/dL (60-115); Potassium 4.2 mmol/L (3.3-5.1); Sodium 138 mmol/L (135-145); Total Protein 7.9 g/dL (6.5-8.0)
[2024-10-31 09:27] LABS: Vitamin D 25-OH Total 20.2 ng/mL (>30)
== END 2024-10-31 07:36 | disposition home or self-care (01) ==
LOC: HO.LAB 07:35
PROVIDERS: PCP Internal Medicine; Visit Provider Internal Medicine
DX: E11.9 Type 2 diabetes mellitus without complications (principal); E21.0 Primary hyperparathyroidism; E78.2 Mixed hyperlipidemia; I10 Essential (primary) hypertension; Z72.0 Tobacco use
CPT/HCPCS: 36415; 80053; 82306; 83970

== ENCOUNTER 2025-04-12 06:38 | Outpatient (REF) | payer MEDICARE, MEDICAID, SELFPAY ==
[2025-04-12 08:01] LABS: Alanine Aminotransferase 17 U/L (0-40); Albumin Level 4.2 g/dL (3.5-5.0); Alkaline Phosphatase 53 U/L (39-117); Anion Gap 12 (12-20); Aspartate Amino Transferase 18 U/L (5-37); Blood Urea Nitrogen 18 mg/dL (9-16); Calcium 9.5 mg/dL (8.4-10.2); Carbon Dioxide 26 mmol/L (22-29); Chloride 104 mmol/L (96-108); Cholesterol 158 mg/dL (<200); Estimated Glomerular Filt Rate > 60; HDL Cholesterol 34 mg/dL (>40); Potassium 4.1 mmol/L (3.3-5.1); Sodium 138 mmol/L (135-145); Total Protein 7.9 g/dL (6.5-8.0); Triglycerides 144 mg/dL (<150)
== END 2025-04-12 06:39 | disposition home or self-care (01) ==
LOC: HO.LAB 06:38
PROVIDERS: PCP Internal Medicine; Visit Provider Internal Medicine
DX: Z12.5 Encounter for screening for malignant neoplasm of prostate (principal); E11.9 Type 2 diabetes mellitus without complications; I10 Essential (primary) hypertension; N40.0 Benign prostatic hyperplasia without lower urinary tract symptoms; E21.0 Primary hyperparathyroidism; E78.00 Pure hypercholesterolemia, unspecified; G57.11 Meralgia paresthetica, right lower limb
CPT/HCPCS: 36415; 80053; 80061; 82043; 82570; 83036; 84153